=== PATIENT | male | born 1970 | race Caucasian/White ===

== ENCOUNTER → 2020-08-06 13:14 | Outpatient (BNVA) | payer BC, SELFPAY | PROVIDERS: PCP Nurse Practitioner Family; Visit Provider Surgery | DX: Z76.89 Persons encountering health services in other specified circumstances (principal) ==

== ENCOUNTER 2020-08-19 16:49 | Outpatient (REF) | payer BC, SELFPAY | END 2020-08-19 16:50 | disposition home or self-care (01) | LOC: HO.CT 16:49 | PROVIDERS: Visit Provider Surgery | DX: Z13.89 Encounter for screening for other disorder (principal) ==

== ENCOUNTER 2020-08-22 16:52 | Outpatient (REF) | payer BC, SELFPAY ==
--- NOTE | 2020-08-22 16:56 | CT_ITS ---
EXAMINATION: CT ABDOMEN AND PELVIS WITHOUT CONTRAST CLINICAL INFORMATION: Left lower quadrant pain. Left inguinal pain. COMPARISON: None TECHNIQUE: Multidetector volumetric imaging was performed from the superior aspect of the liver through the pubic symphysis. Sagittal and coronal reformatted images were obtained on the technologist's workstation. This CT examination was performed using dose optimization techniques as appropriate, variously including the following: *Automated exposure control *Adjustment of mA and/or kV according to patient size (this includes techniques or standardized protocols for targeted exams where dose is matched to indication/reason for exam; i.e. extremities or head) *Use of iterative reconstruction technique DLP: 546 mGy-cm FINDINGS: LUNG BASES: The visualized lung bases are unremarkable. LIVER, GALLBLADDER, AND BILIARY TREE: The liver is normal in size, shape, and attenuation. No focal hepatic lesion or biliary ductal dilatation is present. The gallbladder is unremarkable with no evidence of radiopaque gallstones, gallbladder wall thickening, or obvious pericholecystic inflammatory changes. PANCREAS: Unremarkable. SPLEEN: Unremarkable. ADRENAL GLANDS: Unremarkable. KIDNEYS AND URETERS: The kidneys are normal in size, shape, and attenuation. No hydronephrosis, hydroureter, or calculi seen. No perinephric stranding. BLADDER: Unremarkable. GASTROINTESTINAL TRACT: The stomach is unremarkable. Normal caliber small bowel. There is no obstruction. No colonic wall thickening or inflammatory changes. Normal appendix. No free air or free fluid. ABDOMINAL WALL: There is a small fat-containing left inguinal hernia, likely indirect. No significant inflammatory changes. LYMPH NODES: Normal. VASCULAR: Unremarkable. PELVIC VISCERA: The prostate and seminal vesicles are unremarkable. OSSEOUS STRUCTURES: No acute or suspicious osseous abnormality. Degenerative changes at L5-S1 with disc space narrowing and vacuum disc phenomenon. Multilevel endplate osteophytes. CT/CT abdomen pelvis wo con IMPRESSION: Small fat-containing left inguinal hernia. No significant associated inflammatory changes.
[2020-08-22] MEDS: Barium Sulfate Oral (Vanilla) 450 ML ORAL.SUSP 900 ML PO (17:07)
== END 2020-08-22 16:53 | disposition home or self-care (01) ==
LOC: HO.CT 16:52
PROVIDERS: PCP Nurse Practitioner Family; Visit Provider Surgery
DX: R10.32 Left lower quadrant pain (principal)
CPT/HCPCS: 74176

== ENCOUNTER → 2020-09-10 14:41 | Outpatient (BNVA) | payer BC, SELFPAY | PROVIDERS: PCP Nurse Practitioner Family; Visit Provider Surgery | DX: Z76.89 Persons encountering health services in other specified circumstances (principal) ==

== ENCOUNTER 2020-10-14 07:28 | Day surgery (SDC) | payer BC, SELFPAY ==
[2020-10-02 10:38] VITALS: BMI 28.1
--- NOTE | 2020-10-07 14:19 | HO.ANESPROP2 ---
Documented by User: Radha Crow 10/09/20 10:08 HPI - Anesthesia Eval Consult details Narrative: 49yo M for Hernia Repair Inguinal ? substance use per history [facility] Past Medical History Medical History Chronic fatigue GERD (gastroesophageal reflux disease) Gout Left inguinal pain SARIAH (obstructive sleep apnea) Right hand paresthesia Family History Family History Mother History of lung cancer Surgical History Surgical History History of carpal tunnel surgery of right wrist (~2016) History of esophagogastroduodenoscopy (EGD) History of knee surgery (~2002) History of repair of rotator cuff (~2005) Hx of lumbar discectomy Social History Social History Alcohol intake: current Alcohol intake frequency: a few times a month Alcohol type: beer Smoking Status: Never smoker Use of substances other than those prescribed or required for medical reasons: Yes Substance Use Frequency: Occasionally Advance Directives Information Provided: No Recently lost weight without trying: No Meds Allergies Allergy/AdvReac Type Severity Reaction Status Date / Time No Known Allergies Allergy Verified 08/06/20 15:03 Home Medications Medication Instructions Recorded Confirmed Type ibuprofen 400 mg PO BID 10/02/20 10/02/20 History Exam Exam Date and Time: October 07, 2020 1419 Height,Weight and Vital Signs: Height 5 ft 10 in Weight 88.904 kg Assessment and Plan Assessment Anesthesia Assessment: Chart Reviewed Documented by User: Sherley Reid 10/14/20 09:33 [facility] Past Medical History Medical History Chronic fatigue GERD (gastroesophageal reflux disease) Gout Left inguinal pain SARIAH (obstructive sleep apnea) Right hand paresthesia Family History Family History Mother History of lung cancer Surgical History Surgical History History of carpal tunnel surgery of right wrist (~2016) History of esophagogastroduodenoscopy (EGD) History of knee surgery (~2002) History of repair of rotator cuff (~2005) Hx of lumbar discectomy Social History Social History Alcohol intake: current Alcohol intake frequency: a few times a month Alcohol type: beer Smoking Status: Never smoker Use of substances other than those prescribed or required for medical reasons: Yes Substance Use Frequency: Occasionally Advance Directives Information Provided: No Recently lost weight without trying: No Meds Allergies Allergy/AdvReac Type Severity Reaction Status Date / Time No Known Allergies Allergy Verified 08/06/20 15:03 Home Medications Medication Instructions Recorded Confirmed Type ibuprofen 400 mg PO BID 10/02/20 10/02/20 History Exam Height,Weight and Vital Signs: Vital Signs Temp Pulse Resp BP Pulse Ox 10/14/20 08:13 97.4 F 75 16 169/92 H 97 Airway Mallampati Class: II TM Dist: >3cm Neck ROM: Full Loose/Missing/Broken Teeth: Yes (Molar) Heart: RRR Lungs: CTAB Assessment and Plan Assessment Anesthesia Assessment: Anesthesia Plan Discussed and Chart Reviewed Final Anesthetic Review NPO: Yes ASA Class: III Final Preanesthetic Review: No Changes in Pt Med Stat, Meds/Allgs Chart Reviewed, Consent Obtained/Reviewed and Anes Risks/Benef Reviewed Patient Risk: Intermediate Procedure Risk: Low Anesthetic Plan Anesthetic Plan: GA Disposition: Standard PACU
[2020-10-14 08:13] VITALS: BP 169/92; PULSE 75; RESP 16; TEMP 36.3; O2SAT 97
[2020-10-14] MEDS: Lactated Ringers 1,000 ML 100 ML IVCONT (08:33)
[2020-10-14] MEDS: ceFAZolin Sodium/Dextrose,Iso 2 GM/50 ML PIGGYBACK IV (08:33)
--- NOTE | 2020-10-14 09:10 | MHC.SHP ---
Pre-Procedural Eval Section A The patient is an INPATIENT: No Changes since office visit: Yes Patient answered all questions; No Cold of Flu in the past 2 weeks, No New Medical Problems and No Changes in Medication The History & Physical has been completed within 30 days and I have reviewed it.: No Section B Chief Complaint: Left inguinal hernia Details of Present Illness: Painful lump left groin Relevant Family History (Specify if Yes): No Relevant Social History: None Present Medications: see Short Stay Collaborative assessment Medical History: Significant History (GERD, GOUT, SARIAH) History of Previous Operations: No relevant previous surgery Allergies: Allergies Allergy/AdvReac Type Severity Reaction Status Date / Time No Known Allergies Allergy Verified 08/06/20 15:03 Review of Systems Sugical H&P ROS: Negative: Constitution, Cardiovascular, Respiratory, Neurological, Psychiatric, Hem-Onc, Allergic/Immunologic, Gastrointestinal, Genitourinary, Musculoskeletal, Integumentary, Endocrine and Eyes/Ears/Nose/Throat Exam Surgical H&P Exam: Normal: HEENT, Normal: Heart, Normal: Lungs, Normal: Extremities, Normal: Abdomen, Normal: Skin and Normal: Neurological Plan Diagnosis/Plan: Unchanged I have reviewed the history and physical and performed a pertinent physical examination on my patient. No changes have occurred unless specified.
--- NOTE | 2020-10-14 10:18 | PM.OP ---
Brief Operative Note Date of Service: 10/14/20 Pre-op diagnosis: Left inguinal hernia Post-op diagnosis: same Procedure: Repair of left inguinal hernia Implants: Medium PHS mesh Surgeon: Jann Thompson MD Anesthesia: GLMA System Archive Analyst: Jyoti Huff Estimated blood loss (mL): 5 Pathology: other (lipoma of cord) Condition: stable Disposition: PACU
--- NOTE | 2020-10-14 10:19 | W.PM.OPN ---
Operative Note Operative Note Date of Service: 10/14/20 Narrative: Preoperative diagnosis: Left inguinal hernia, recurrent Postoperative diagnosis: Same Procedure: Repair of left inguinal hernia with mesh, recurrence Surgeon: Jann Thompson MD [place] Paver: Jyoti Huff PA-C Anesthesia: General LMA Indications for procedure: This is a 49-year-old male patient presenting with complaints of pain in the left groin initially felt to have inguinal lymphadenopathy. Subsequent workup with CT of the abdomen pelvis however revealed a fat containing left inguinal hernia. Operative findings: Patient was found to have a large lipoma of the cord involving the left inguinal canal. Specimen: Lipoma of the cord left inguinal canal Complications: None Estimated blood loss: 5 mL Procedure details: Patient was brought to the OR and placed in a supine position. After administering general anesthesia the patient's abdomen was prepped with ChloraPrep and draped in a sterile fashion. A surgical time-out was called the consent confirmed. Patient received preoperative antibiotics and Venodyne boots were in place. Local anesthesia consisting of 0.75% Sensorcaine with epinephrine was infiltrated over the left inguinal ligament. Incision was then made with a scalpel measuring approximately 6 cm in length. This was carried out through subcutaneous tissue past Candida's fashion up to the external oblique aponeurosis. This was then incised with a scalpel and widened with Metzenbaum scissors. The spermatic cord was then dissected free from the surrounding subcutaneous tissue. The spermatic cord was then retracted using a Gage drain. The floor of the inguinal canal is felt to be intact. A fatty the cord was identified. Fibers of the cremasteric muscle were then and the spermatic cord entered. A large lipoma was identified and dissected free down to the internal ring. This was then ligated and divided. No other inguinal sac was identified. Fibers of the internal oblique and transversalis aponeurosis were then using electrocautery. Preperitoneal space was then entered and widened using an open Ray-Anastasiya. Sponge. A medium PHS mesh was then obtained. The circular underlay was deployed into the preperitoneal space. The overlay was then secured to the pubic tubercle conjoined tendon, and shelving edge of the inguinal ligament using 0 Polysorb suture. A slit was made in the mesh at the internal ring and the mesh wrapped around the spermatic cord. This was then secured to the shelving edge of the inguinal ligament. The ring was tight enough to allow passage of only the tip of the index finger. The remainder of the mesh laterally was placed below the external oblique aponeurosis. The wounds were then irrigated and suctioned dry. Additional local was infiltrated at this time. External oblique aponeurosis was then closed using a running 2 0 Polysorb suture. Candida's fascia and dermis were reapproximated using interrupted 3-0 Polysorb sutures. Skin was then closed using a running subcuticular 4 0 Polysorb suture. Steri-Strips, 2 x 2 gauze and Tegaderm were then applied. Patient tolerated the procedure well. Sponge, instrument, needle counts reported as correct. The patient was transferred to PACU in stable condition.
[2020-10-14 10:23] VITALS: BP 142/78; PULSE 67; RESP 16; TEMP 36.3; O2SAT 98
[2020-10-14 10:28] VITALS: BP 142/91; PULSE 73; RESP 18; O2SAT 98
[2020-10-14 10:33] VITALS: BP 134/85; PULSE 69; RESP 16; O2SAT 96
[2020-10-14 10:38] VITALS: BP 138/87; PULSE 74; RESP 18; O2SAT 97
[2020-10-14 10:53] VITALS: BP 141/92; PULSE 66; RESP 16; TEMP 36.3; O2SAT 96
--- NOTE | 2020-10-14 11:25 | HO.POSTANES ---
Post Anesthesia Evaluation Post Anesthesia Evaluation Vital Signs: Vital Signs Temp Pulse Resp BP Pulse Ox 10/14/20 10:53 97.3 F 66 16 141/92 H 96 10/14/20 10:38 74 18 138/87 97 10/14/20 10:33 69 16 134/85 96 10/14/20 10:28 73 18 142/91 H 98 10/14/20 10:23 97.4 F 67 16 142/78 H 98 10/14/20 08:13 97.4 F 75 16 169/92 H 97 Anesthesia: General LMA Mental Status: Awake Pain Control: Satisfactory Nausea/Vomiting: None Hydration: Adequate Anesthesia-Related Issues: No Anes. Related Issues
== END 2020-10-14 11:40 | disposition home or self-care (01) ==
PROVIDERS: PCP Nurse Practitioner Family; Visit Provider Surgery
PROC: (CPT 49520; principal; 2020-10-14 09:00)
DX: K40.91 Unilateral inguinal hernia, without obstruction or gangrene, recurrent (principal); D17.6 Benign lipomatous neoplasm of spermatic cord; K21.9 Gastro-esophageal reflux disease without esophagitis; G47.33 Obstructive sleep apnea (adult) (pediatric); Z79.899 Other long term (current) drug therapy
CPT/HCPCS: 49520; 88304; C1781; J0690; J1100; J1170; J1885; J2250; J2405; J3010

== ENCOUNTER → 2020-10-23 09:06 | Outpatient (BNVA) | payer BC, SELFPAY | PROVIDERS: PCP Nurse Practitioner Family; Visit Provider Surgery | DX: Z76.89 Persons encountering health services in other specified circumstances (principal) ==

== ENCOUNTER 2020-11-14 12:42 | Outpatient (REF) | payer BC, SELFPAY ==
--- NOTE | ~2020-11-14 | XR_ITS ---
EXAMINATION: XR CHEST CLINICAL INFORMATION: Dyspnea. COMPARISON: 11/29/2018 TECHNIQUE: 2 views of the chest were obtained. FINDINGS: The lungs are well expanded. Patchy opacity of the right midlung noted. No pleural effusion or pneumothorax. The cardiomediastinal silhouette is within normal limits. No acute osseous abnormality. XR/XR chest 2V IMPRESSION: Patchy right midlung opacity which could be infectious or inflammatory in nature.
== END 2020-11-14 12:43 | disposition home or self-care (01) ==
LOC: HO.HMGCX 12:42
PROVIDERS: PCP Nurse Practitioner Family; Visit Provider Physician Assistant
DX: R06.00 Dyspnea, unspecified (principal); Z86.16 Personal history of COVID-19
CPT/HCPCS: 71046

== ENCOUNTER → 2020-11-21 13:21 | Outpatient (BNVA) | payer BC, SELFPAY | PROVIDERS: PCP Nurse Practitioner Family; Visit Provider Surgery ==

== ENCOUNTER → 2021-01-24 10:21 | Outpatient (BNVA) | payer BC, SELFPAY | PROVIDERS: PCP Nurse Practitioner Family; Visit Provider Surgery ==

== ENCOUNTER 2021-01-30 13:42 | Outpatient (REF) | payer BC, SELFPAY ==
--- NOTE | ~2021-01-30 | US_ITS ---
EXAMINATION: US left inguinal soft tissue CLINICAL INFORMATION: Pain status post hernia repair. COMPARISON: None available at the time of this dictation. TECHNIQUE: High-frequency linear transducer ultrasound utilized, area of interest scanned, left inguinal region FINDINGS: No ultrasound evidence of soft tissue mass, cyst or abscess, or abnormal distortion. No ultrasound evidence of hernia recurrence. There is normal-sized lymph node included 1 x 0.5 x 0.8 cm. US/US pelvic limited IMPRESSION: No ultrasound evidence of hernia recurrence.
== END 2021-01-30 13:43 | disposition home or self-care (01) ==
LOC: HO.US 13:42
PROVIDERS: PCP Nurse Practitioner Family; Visit Provider Surgery
DX: Z98.890 Other specified postprocedural states (principal); Z87.19 Personal history of other diseases of the digestive system
CPT/HCPCS: 76857

== ENCOUNTER 2021-06-18 06:34 | Outpatient (REF) | payer BC, SELFPAY ==
[2021-06-18 12:04] LABS: Prostate Specific Antigen Scr 0.43 ng/mL (<0.05-4.0)
[2021-06-18 12:11] LABS: Alanine Aminotransferase 47 U/L (0-40); Albumin Level 4.2 g/dL (3.5-5.0); Alkaline Phosphatase 80 U/L (39-117); Anion Gap 12 (12-20); Aspartate Amino Transferase 26 U/L (5-37); Bilirubin Total 0.8 mg/dL (0.0-1.0); Blood Urea Nitrogen 13 mg/dL (9-16); Calcium 9.4 mg/dL (8.4-10.2); Carbon Dioxide 28 mmol/L (22-29); Chloride 104 mmol/L (96-108); Cholesterol 257 mg/dL; Estimated Glomerular Filt Rate > 60; Glucose Fasting 98 mg/dL (60-99); HDL Cholesterol 59 mg/dL; LDL Cholesterol Calculated 160 mg/dl; Potassium 4.1 mmol/L (3.3-5.1); Sodium 140 mmol/L (135-145); Total Protein 6.5 g/dL (6.5-8.0); Triglycerides 190 mg/dL
== END 2021-06-18 06:35 | disposition home or self-care (01) ==
LOC: HO.HMGCLDS 06:34
PROVIDERS: PCP Nurse Practitioner Family; Visit Provider Nurse Practitioner Family
DX: Z12.5 Encounter for screening for malignant neoplasm of prostate (principal); I10 Essential (primary) hypertension
CPT/HCPCS: 36415; 80053; 80061; 84153; 84443

== ENCOUNTER → 2021-07-03 13:25 | Outpatient (BNVA) | payer BC, SELFPAY | PROVIDERS: PCP Nurse Practitioner Family; Referring Provider Nurse Practitioner Family; Visit Provider Physician Assistant ==

== ENCOUNTER 2021-09-03 09:54 | Day surgery (SDC) | payer BC, SELFPAY ==
[2021-08-26 09:35] VITALS: BMI 27.2
--- NOTE | 2021-09-02 10:29 | P.CONAN_ITS ---
Documented by User: Radha Crow NP 09/02/21 10:31 HPI - Anesthesia Eval Consult details Narrative: 50yo M for Upper Endoscopy and Colonoscopy [facility] Active Problems Active Problems: All Active Problems (Updated 08/26/21 @ 09:33 by Harleen Kenney RN) Immunizations incomplete (Acute) Dyspnea on exertion (Acute) History of COVID-19 (Acute) HTN (hypertension) (Acute) Allergies (Acute) Screening for colon cancer (Acute) Screening PSA (prostate specific antigen) (Acute) Allergies (Acute) Dyslipidemia (Acute) Elevated liver enzymes (Acute) Sleep apnea (Acute) GERD (gastroesophageal reflux disease) (Acute) H/O left inguinal hernia repair (Acute) Past Medical History Medical History Chronic fatigue COVID-19 vaccine series completed GERD (gastroesophageal reflux disease) Gout HTN (hypertension) Left inguinal hernia SARIAH (obstructive sleep apnea) Right hand paresthesia Family History Family History Mother History of lung cancer Surgical History Surgical History (Updated 08/26/21 @ 08:50 by Harleen Kenney RN) H/O left inguinal hernia repair History of carpal tunnel surgery of right wrist (~2016) History of esophagogastroduodenoscopy (EGD) History of knee surgery (~2002) History of repair of rotator cuff (~2005) Hx of lumbar discectomy Social History Social History (Updated 08/26/21 @ 09:35 by Harleen Kenney RN) Household Members: Family Household Members Other:: can Housing: House Are you a primary behavioral health care coordinator to a significant other at home: No Do you presently have visiting nurse or other home services: No Alcohol intake: current Alcohol intake frequency: a few times a month Alcohol type: beer Patient Tobacco Use Status: Never used Tobacco Use of substances other than those prescribed or required for medical reasons: Yes Substance Use Type Other:: occasional edible or smokes-rarely using at this shakira e Substance Use Frequency: Occasionally Have you been hit, kicked, punched, or otherwise hurt by someone within the past year? If so, by whom?: No Are you DNR?: No Advance Directives: No Advance Directives Information Provided: Yes Advance Directives on File: No Recently lost weight without trying: No Eating poorly because of decreased appetite: No Nutrition Risks: No Nutritional Risk Poor oral hygiene: No Meds Allergies Allergy/AdvReac Type Severity Reaction Status Date / Time Seasonal Allergies Allergy Mild runny Verified 09/03/21 10:21 nose, post nasal drip Home Medications Medication Instructions Recorded Confirmed Last Taken Type cetirizine 10 mg tablet 10 mg PO DAILY 08/26/21 08/26/21 Unknown History omeprazole 20 mg capsule,delayed 1 cap PO DAILY 09/03/21 09/03/21 09/03/21 08:00 History release Exam Exam Date and Time: September 02, 2021 1029 Height,Weight and Vital Signs: Height 5 ft 10 in Weight 86.183 kg Pertinent Lab Results Pertinent Lab Results: Laboratory Tests 06/18/21 06:47 Sodium 140 Potassium 4.1 Chloride 104 Carbon Dioxide 28 BUN 13 Creatinine 0.90 Assessment and Plan Assessment Anesthesia Assessment: Chart Reviewed Documented by User: Dash Salcido 09/03/21 10:37 [facility] Past Medical History Medical History Chronic fatigue COVID-19 vaccine series completed GERD (gastroesophageal reflux disease) Gout HTN (hypertension) Left inguinal hernia SARIAH (obstructive sleep apnea) Right hand paresthesia Functional capacity: independent ambulation Family History Family History Mother History of lung cancer Family history of problems with anesthesia: No Surgical History Surgical History (Updated 08/26/21 @ 08:50 by Harleen Kenney, BERNARD) H/O left inguinal hernia repair History of carpal tunnel surgery of right wrist (~2016) History of esophagogastroduodenoscopy (EGD) History of knee surgery (~2002) History of repair of rotator cuff (~2005) Hx of lumbar discectomy History of Problems with Anesthesia: No Social History Social History (Updated 11/16/21 @ 09:35 by Harleen Kenney RN) Household Members: Family Household Members Other:: can Housing: House Are you a primary behavioral health care coordinator to a significant other at home: No Do you presently have visiting nurse or other home services: No Alcohol intake: current Alcohol intake frequency: a few times a month Alcohol t ype: beer Patient Tobacco Use Status: Never used Tobacco Use of substances other than those prescribed or required for medical reasons: Yes Substance Use Type Other:: occasional edible or smokes-rarely using at this time Substance Use Frequency: Occasionally Have you been hit, kicked, punched, or otherwise hurt by someone within the past year? If so, by whom?: No Are you DNR?: No Advance Directives: No Advance Directives Information Provided: Yes Advance Directives on File: No Recently lost weight without trying: No Eating poorly because of decreased appetite: No Nutrition Risks: No Nutritional Risk Poor oral hygiene: No Meds Allergies Allergy/AdvReac Type Severity Reaction Status Date / Time Seasonal Allergies Allergy Mild runny Verified 09/03/21 10:21 nose, post nasal drip Home Medications Medication Instructions Recorded Confirmed Last Taken Type cetirizine 10 mg tablet 10 mg PO DAILY 08/26/21 08/26/21 Unknown History omeprazole 20 mg capsule,delayed 1 cap PO DAILY 09/03/21 09/03/21 09/03/21 08:00 History release Exam Airway Mallampati Class: IV TM Dist: >3cm Neck ROM: Full Loose/Missing/Broken Teeth: Yes (Brooken teeth , left ) Heart: rrr Lungs: bl breath sounds Assessment and Plan Final Anesthetic Review Family History of Problems with Anesthesia: No History of Problems with Anesthesia: No NPO: Yes ASA Class: II Final Preanesthetic Review: Meds/Allgs Chart Reviewed and Anes Risks/Benef Reviewed Patient Risk: Intermediate Procedure Risk: Intermediate Anesthetic Plan Anesthetic Plan: MAC: Disposition: Standard PACU
--- NOTE | 2021-09-03 10:24 | MHC.SHP ---
Pre-Procedural Eval Section A Date of Service: 09/03/21 Section B Chief Complaint: screening,reflux disease Relevant Family History (Specify if Yes): No Relevant Social History: None Present Medications: see Short Stay Collaborative assessment Medical History: Significant History (Chronic fatigue COVID-19 vaccine series completed GERD (gastroesophageal reflux disease) Gout HTN (hypertension) Left inguinal hernia SARIAH (obstructive sleep apnea) Right hand paresthesia) History of Previous Operations: Relevant previous surgery/procedure and date(s) (H/O left inguinal hernia repair History of carpal tunnel surgery of right wrist (~2016) History of esophagogastroduodenoscopy (EGD) History of knee surgery (~2002) History of repair of rotator cuff (~2005) Hx of lumbar discectomy) Allergies: Allergies Allergy/AdvReac Type Severity Reaction Status Date / Time Seasonal Allergies Allergy Mild runny Verified 09/03/21 10:21 nose, post nasal drip Review of Systems Sugical H&P ROS: Negative: Constitution, Cardiovascular, Respiratory, Neurological, Psychiatric, Hem-Onc, Allergic/Immunologic, Gastrointestinal, Genitourinary, Musculoskeletal, Integumentary, Endocrine and Eyes/Ears/Nose/Throat Exam Surgical H&P Exam: Normal: HEENT, Normal: Heart, Normal: Lungs, Normal: Extremities, Normal: Abdomen, Normal: Skin and Normal: Neurological Plan Diagnosis/Plan: Unchanged I have reviewed the history and physical and performed a pertinent physical examination on my patient. No changes have occurred unless specified.
[2021-09-03 10:29] VITALS: BP 140/90; PULSE 73; RESP 20; TEMP 36.7; O2SAT 99
--- NOTE | 2021-09-03 10:30 | PM.OP ---
Brief Operative Note Date of Service: 09/03/21 Pre-op diagnosis: GERD, dysphagia, colons creening Post-op diagnosis: same Procedure: see op note Surgeon: Jimmy Gongora MD Anesthesia: MAC Was an [employer] used for this Procedure?: No Estimated blood loss (mL): 0 Condition: stable Disposition: PACU
--- NOTE | 2021-09-03 10:30 | W.PM.OPN ---
Operative Note Operative Note Date of Service: 09/03/21 Narrative: Operative Information Procedure Description: EGD, Colonoscopy FLEXIBLE TRANSORAL UPPER GASTROINTESTINAL ENDOSCOPY AND COLONOSCOPY PROCEDURE NOTE UPPER ENDOSCOPY Consent: Indications for the procedure and potential complications of bleeding, perforation, reaction to medications and missed diagnosis were discussed with the patient and informed consent was obtained. Instrument: Olympus GIF H 190 J mid size upper endoscope Monitoring: Vital signs and clinical assessment, continuous EKG monitoring, Pulse oximetry, Carbon Dioxide monitoring and blood pressure monitoring were done throughout the procedure. Procedure: The patient was placed in the left lateral decubitis position and pre-procedure medications were administered and a bite block was placed. The endoscope was inserted into the mouth and advanced under direct vision to the third part of duodenum. A careful inspection was made as the upper endoscope was withdrawn including a retroflexed examination of the proximal stomach; Findings and interventions are described below. Findings: Larynx:normal Esophagus: GE junction at 40 cm, diaphragm hiatus at 40 cm, irregular Z line with salmon pink islands and one short tongue, suspicious for barretts--bx taken. Balloon dilation doen at LES to 17 mm and UES to 16 mm. Stomach: Patchy erythema. Biopsies were obtained. Grade 2 flap valve on retroflexed examination of the cardia. Duodenum: Mild duodenitis, bx taken Intervention: Biopsies as noted above COLONOSCOPY Instrument: Olympus variable stiffness pediatric scope 190L Colonoscopy Monitoring: Vital signs and clinical assessment, continuous EKG monitoring, Pulse oximetry, Carbon Dioxide monitoring and blood pressure monitoring were done throughout the procedure. Colon withdrawal time was 16 minutes. Procedure: The patient was placed in the left lateral decubitis position and pre-procedure medications were administered. After a digital rectal examination of the ano-rectum, the video colonoscope was inserted into the rectum and advanced through the colon to the cecum/TI. The colonoscope was slowly withdrawn in a retrograde panoramic fashion and the colon mucosa was carefully examined including a retroflexed view of the rectum. Findings and interventions are described below. Procedure Difficulty: moderate due to looping Findings: Terminal Ileum-normal Cecum: 4-6 mm sessile polyp removed with forceps Ascending Colon: 6-8 mm sessile polyp removed with forceps Transverse Colon -normal Descending Colon:normal Sigmoid Colon: normal Rectum: Retroflexion with small internal hemorrhoids, grade I Anorectum - normal Colon preparation: [place] Bowel Preparation Scale Right colon; 2 Transverse colon: 2 Left colon; 1 (0 = Unprepared colon segment with mucosa not seen due to solid stool that cannot be cleared. 1 = Portion of mucosa of the colon segment seen, but other areas of the colon segment not well seen due to staining, residual stool and/or opaque liquid. 2 = Minor amount of residual staining, small fragments of stool and/or opaque liquid, but mucosa of colon segment seen well. 3 = Entire mucosa of colon segment seen well with no residual staining, small fragments of stool or opaque liquid) Impression and Post Procedure Diagnosis: Endoscopy Findings: gastritis duodenitis possible barretts esophagus Colonoscopy Findings: polyps internal hemorrhoids Plan: Await Pathology results Repeat Colonoscopy in 5 years due to polyps and prep or earlier if clinically indicated High fiber diet leaflet avoid straining at stool, epsom salts and sitz bath, anusol supps or cream check compliance with PPI and for nsaid use if h pylori pos then treat Above findings were reviewed with the patient and relevant handouts were provided if indicated.
[2021-09-03] MEDS: Lactated Ringers 1,000 ML 100 ML IVCONT (10:32)
[2021-09-03 11:27] VITALS: BP 135/84; PULSE 70; RESP 14; TEMP 36.2; O2SAT 99
[2021-09-03 11:51] VITALS: BP 137/76; PULSE 62; RESP 16; TEMP 36.2; O2SAT 100
== END 2021-09-03 12:09 ==
LOC: HO.SSS 09:55
PROVIDERS: PCP Nurse Practitioner Family; Visit Provider Internal Medicine Gastroenterology
PROC: (CPT 45380; principal; 2021-09-03 11:00)
DX: Z12.11 Encounter for screening for malignant neoplasm of colon (principal); D12.2 Benign neoplasm of ascending colon; K63.5 Polyp of colon; K64.0 First degree hemorrhoids; K21.9 Gastro-esophageal reflux disease without esophagitis; K29.50 Unspecified chronic gastritis without bleeding; K22.70 Barrett's esophagus without dysplasia; K20.80 Other esophagitis without bleeding; K29.80 Duodenitis without bleeding; K44.9 Diaphragmatic hernia without obstruction or gangrene; G47.33 Obstructive sleep apnea (adult) (pediatric); R53.83 Other fatigue; I10 Essential (primary) hypertension; Z79.899 Other long term (current) drug therapy; Z79.1 Long term (current) use of non-steroidal anti-inflammatories (NSAID)
CPT/HCPCS: 45380; 43249; 43239; 88305; 88342; C1726

== ENCOUNTER 2021-12-10 10:11 | Outpatient (REF) | payer BC, SELFPAY ==
--- NOTE | ~2021-12-10 | FL_ITS ---
EXAMINATION: FL BARIUM SWALLOW CLINICAL INFORMATION: Dysphagia. COMPARISON: None. TECHNIQUE: Barium swallow examination is performed using fluoroscopic evaluation in addition to multiple fluoroscopic spot views. The patient is imaged both upright and prone and using both thick and thin sulfate along with effervescent granules. Fluoroscopy time: 1.5 minutes DAP: 10.419 Gy-cm2 Images: 51 FINDINGS: Following oral administration of thick barium in upright view, there is mild circumferentially irregularity in the cervical esophagus on several images. This could be secondary to mucosal hypertrophy or mural thickening. The rest of the esophagus is of normal caliber with no obstruction, narrowing or mucosal abnormality. On oral administration of barium-coated with turkey, there is normal propagation of solid bolus from the oral cavity through the pharynx and esophagus and into the stomach. On placing patient prone lying, there is good distention of the esophagus without obstruction, intrinsic lesion or extrinsic compression. No gastroesophageal reflux or hiatal hernia seen. FL/FL barium swallow IMPRESSION: Mild cerebral irregularity in the cervical esophagus likely secondary to mucosal hypertrophy or mural thickening. The thoracic esophagus is normal. No gastroesophageal reflux or hiatal hernia seen.
== END 2021-12-10 10:12 | disposition home or self-care (01) ==
LOC: HO.XRAY 10:11
PROVIDERS: PCP Nurse Practitioner Family; Visit Provider Nurse Practitioner Family
DX: R13.10 Dysphagia, unspecified (principal); T17.320A Food in larynx causing asphyxiation, initial encounter
CPT/HCPCS: 74220

== ENCOUNTER 2022-07-01 06:55 | Outpatient (REF) | payer BC, SELFPAY ==
[2022-07-01 07:06] LABS: MANUAL DIFF FLAG NO
[2022-07-01 07:41] LABS: Basophils Absolute Auto 0.1 X10*3/uL (0.0-0.2); Basophils Percent Auto 0.8 % (0-2); Eosinophils Absolute Auto 0.3 X10*3/uL (0.0-0.4); Eosinophils Percent Auto 4.8 % (0-4); Hematocrit 43.9 % (42.0-52.0); Hemoglobin 15.3 g/dl (14.0-18.0); Imm Gran Abs Auto 0.03 X10*3/uL (0.00-0.03); Imm Gran Pct Auto 0.5 % (0.0-0.4); Lymphocytes Absolute Auto 2.1 X10*3/uL (1.2-4.9); Lymphocytes Percent Auto 34.3 % (20-40); Mean Corpuscular HGB Conc 34.9 g/dl (31.0-36.0); Mean Corpuscular Hemoglobin 32.1 pg (27.0-33.0); Mean Platelet Volume 10.5 fL (9.4-12.4); Monocytes Absolute Auto 0.8 X10*3/uL (0.1-1.2); Monocytes Percent Auto 12.9 % (2-11); Neutrophils Absolute Auto 2.8 x10*3/uL (2.0-8.3); Neutrophils Percent Auto 46.7 % (45-73); Platelet Count 307 X10*3/uL (160-400); Red Blood Count 4.77 X10*6/uL (4.60-5.80); Red Cell Distribution Width 12.3 % (11.0-16.0)
== END 2022-07-01 06:56 | disposition home or self-care (01) ==
LOC: HO.LAB 06:55
PROVIDERS: Absent Provider Internal Medicine Gastroenterology; PCP Nurse Practitioner Family; Visit Provider Nurse Practitioner Family
DX: R13.10 Dysphagia, unspecified (principal); T17.320A Food in larynx causing asphyxiation, initial encounter; T78.40XA Allergy, unspecified, initial encounter
CPT/HCPCS: 36415; 85025; 86003

== ENCOUNTER 2022-09-15 10:49 | Day surgery (SDC) | payer BC, SELFPAY ==
[2022-09-10 10:33] VITALS: BMI 27.9
--- NOTE | 2022-09-14 13:17 | P.CONAN_ITS ---
Documented by User: Radha Crow NP 09/14/22 13:17 HPI - Anesthesia Eval Consult details Narrative: 51yo M for Upper Endoscopy [place] PMFSH Active Problems Active Problems: All Active Problems (Updated 07/15/22 @ 14:36 by [facility]) Physical exam (Acute) Choking due to food in larynx (Acute) Dysphagia (Acute) Immunizations incomplete (Acute) Dyspnea on exertion (Acute) History of COVID-19 (Acute) HTN (hypertension) (Acute) Allergies (Acute) Screening for colon cancer (Acute) Screening PSA (prostate specific antigen) (Acute) Allergies (Acute) Dyslipidemia (Acute) Elevated liver enzymes (Acute) Sleep apnea (Acute) GERD (gastroesophageal reflux disease) (Acute) H/O left inguinal hernia repair (Acute) Past Medical History Medical History Chronic fatigue COVID-19 vaccine series completed GERD (gastroesophageal reflux disease) Gout HTN (hypertension) Left inguinal hernia SARIAH (obstructive sleep apnea) Right hand paresthesia Family History Family History Mother History of lung cancer Family history of problems with anesthesia: No Surgical History Surgical History H/O left inguinal hernia repair History of carpal tunnel surgery of right wrist (~2016) History of esophagogastroduodenoscopy (EGD) History of knee surgery (~2002) History of repair of rotator cuff (~2005) Hx of lumbar discectomy History of Problems with Anesthesia: No Social History Social History Household Members: Family Household Members Other:: can Housing: House Are you a primary intensive care medicine specialist to a significant other at home: No Do you presently have visiting nurse or other home services: No Alcohol intake: current Alcohol intake frequency: 0-2 drinks per day Alcohol type: beer Patient Tobacco Use Status: Never used Tobacco e-Cigarette/Vaping Use: Never Used Second Hand Smoke Exposure: No Current occupational status: employed Current occupation: [employer] Current occupational exposures/hazards: No Cognitive needs: No Hearing needs: No Vision needs: No Meds Allergies Allergy/AdvReac Type Severity Reaction Status Date / Time Seasonal Allergies Allergy Mild runny Verified 07/15/22 14:35 nose, post nasal drip Home Medications Medication Instructions Recorded Confirmed Last Taken Type fluticasone propionate 50 1 spray intranasal BID 10/13/21 07/15/22 Unknown History mcg/actuation nasal spray,suspension (Flonase Allergy Relief) levocetirizine 5 mg tablet (Xyzal) 5 mg PO DAILY 01/12/22 07/15/22 Unknown History Exam Exam Date and Time: September 14, 2022 131 Height,Weight and Vital Signs: Height 5 ft 10 in Weight 88.451 kg Assessment and Plan Assessment Anesthesia Assessment: Chart Reviewed Final Anesthetic Review Family History of Problems with Anesthesia: No History of Problems with Anesthesia: No Documented by User: Dash Salcido MD 09/15/22 19:50 [facility] Past Medical History Medical History Chronic fatigue COVID-19 vaccine series completed GERD (gastroesophageal reflux disease) Gout HTN (hypertension) Left inguinal hernia SARIAH (obstructive sleep apnea) Right hand paresthesia Family History Family History Mother History of lung cancer Surgical History Surgical History H/O left inguinal hernia repair History of carpal tunnel surgery of right wrist (~2016) History of esophagogastroduodenoscopy (EGD) History of knee surgery (~2002) History of repair of rotator cuff (~2005) Hx of lumbar discectomy Social History Social History Household Members: Family Household Members Other:: can Housing: House Are you a primary intensive care medicine specialist to a significant other at home: No Do you presently have visiting nurse or other home services: No Alcohol intake: current Alcohol intake frequency: 0-2 drinks per day Alcohol type: beer Patient Tobacco Use Status: Never used Tobacco e-Cigarette/Vaping Use: Never Used Second Hand Smoke Exposure: No Current occupational status: employed Current occupation: [employer] Current occupational exposures/hazards: No Cognitive needs: No Hearing needs: No Vision needs: No Meds Allergies Allergy/AdvReac Type Severity Reaction Status Date / Time Seasonal Allergies Allergy Mild runny Verified 07/15/22 14:35 nose, post nasal drip Home Medications Medication Instructions Recorded Confirmed Last Taken Type fluticasone propionate 50 1 spray intranasal BID 10/13/21 07/15/22 Unknown History mcg/actuation nasal spray,suspension (Flonase Allergy Relief) levocetirizine 5 mg tablet (Xyzal) 5 mg PO DAILY 01/12/22 07/15/22 Unknown History Exam Airway Mallampati Class: IV TM Dist: >3cm Neck ROM: Full Loose/Missing/Broken Teeth: Yes (Upper front teeth chipped) Assessment and Plan Assessment Anesthesia Assessment: Anesthesia Plan Discussed Final Anesthetic Review NPO: Yes ASA Class: II Final Preanesthetic Review: Meds/Allgs Chart Reviewed, Consent Obtained/Reviewed and Anes Risks/Benef Reviewed Patient Risk: Intermediate Procedure Risk: Intermediate Anesthetic Plan Anesthetic Plan: MAC: Disposition: Standard PACU
--- NOTE | 2022-09-15 10:59 | MHC.SHP ---
Pre-Procedural Eval Section A Date of Service: 09/15/22 Section B Chief Complaint: GERD Details of Present Illness: dysphagia Relevant Family History (Specify if Yes): No Relevant Social History: None Present Medications: see Short Stay Collaborative assessment Medical History: Significant History (Chronic fatigue COVID-19 vaccine series completed GERD (gastroesophageal reflux disease) Gout HTN (hypertension) Left inguinal hernia SARIAH (obstructive sleep apnea) Right hand paresthesia) History of Previous Operations: Relevant previous surgery/procedure and date(s) ( H/O left inguinal hernia repair History of carpal tunnel surgery of right wrist (~2016) History of esophagogastroduodenoscopy (EGD) History of knee surgery (~2002) History of repair of rotator cuff (~2005) Hx of lumbar discectomy) Allergies: Allergies Allergy/AdvReac Type Severity Reaction Status Date / Time Seasonal Allergies Allergy Mild runny Verified 07/15/22 14:35 nose, post nasal drip Review of Systems Sugical H&P ROS: Negative: Constitution, Cardiovascular, Respiratory, Neurological, Psychiatric, Hem-Onc, Allergic/Immunologic, Gastrointestinal, Genitourinary, Musculoskeletal, Integumentary, Endocrine and Eyes/Ears/Nose/Throat Exam Surgical H&P Exam: Normal: HEENT, Normal: Heart, Normal: Lungs, Normal: Extremities, Normal: Abdomen, Normal: Skin and Normal: Neurological Plan Diagnosis/Plan: Unchanged I have reviewed the history and physical and performed a pertinent physical examination on my patient. No changes have occurred unless specified. ESCUDERO and balloon dilation
[2022-09-15 11:20] VITALS: BP 133/80; PULSE 63; RESP 16; TEMP 36.5; O2SAT 96
[2022-09-15] MEDS: Lactated Ringers 1,000 ML 100 ML IVCONT (11:23)
--- NOTE | 2022-09-15 11:34 | W.PM.OPN ---
Operative Note Operative Note Date of Service: 09/15/22 Narrative: Procedure Description: EGD Indication: GERd, dysphagia Anesthesia: MAC FLEXIBLE TRANSORAL UPPER GASTROINTESTINAL ENDOSCOPY UPPER ENDOSCOPY Consent: Indications for the procedure and potential complications of bleeding, perforation, reaction to medications and missed diagnosis were discussed with the patient and informed consent was obtained. Instrument: Olympus GIF H 190 J mid size upper endoscope Monitoring: Vital signs and clinical assessment, continuous EKG monitoring, Pulse oximetry, Carbon Dioxide monitoring and blood pressure monitoring were done throughout the procedure. Procedure: The patient was placed in the left lateral decubitis position and pre-procedure medications were administered and a bite block was placed. The endoscope was inserted into the mouth and advanced under direct vision to the third part of duodenum. A careful inspection was made as the upper endoscope was withdrawn including a retroflexed examination of the proximal stomach; Findings and interventions are described below. Findings: Larynx:normal Esophagus: GE junction at 42 cm, diaphragm hiatus at 42 cm, irregular z line with lax LES, Ballon dilation doen to 19 mm LEs and 18 mm UES with slight heme seen. ESCUDERO placement at 36 cm. Stomach: normal mucosa. Grade 3 flap valve on retroflexed examination of the cardia. Duodenum: Normal bulb and descending duodenum, Intervention: Balloon dilation, ESCUDERO placement Impression/Findings: LAX LES PLAN: await ESCUDERO results GERD precautions
[2022-09-15 12:44] VITALS: BP 143/77; PULSE 78; RESP 16; TEMP 36.9; O2SAT 96
[2022-09-15 12:59] VITALS: BP 136/78; PULSE 60; RESP 18; TEMP 36.8; O2SAT 96
== END 2022-09-15 14:15 | disposition home or self-care (01) ==
PROVIDERS: PCP Nurse Practitioner Family; Visit Provider Internal Medicine Gastroenterology
PROC: 0DJ08ZZ Inspection of Upper Intestinal Tract, Via Natural or Artificial Opening Endoscopic (ICD-10-PCS; CPT 43235; principal; 2022-09-15 12:00)
DX: R13.10 Dysphagia, unspecified (principal); K21.9 Gastro-esophageal reflux disease without esophagitis; I10 Essential (primary) hypertension; G47.33 Obstructive sleep apnea (adult) (pediatric); Z79.899 Other long term (current) drug therapy
CPT/HCPCS: 43249; C1726; J2250

== ENCOUNTER 2022-11-02 16:43 | Emergency (ER) | payer BC, SELFPAY ==
--- NOTE | ~2022-11-02 | XR_ITS ---
EXAMINATION: XR CHEST CLINICAL INFORMATION: Chest pain COMPARISON: 11/14/2020 TECHNIQUE: Frontal view of the chest was obtained. FINDINGS: No significant abnormality is noted involving the heart, lungs, mediastinum, bony thorax or soft tissues. Previously seen pulmonary infiltrates have cleared and the exam is now normal. XR/XR chest 1V IMPRESSION: Unremarkable examination.
--- NOTE | 2022-11-02 17:12 | ED_ITS ---
HPI - General Adult General Chief complaint: Chest Pain Stated complaint: high blood presure Time Seen by Provider: 11/02/22 19:08 Source: patient Mode of arrival: ambulatory Limitations: no limitations History of Present Illness HPI narrative: 51 yo male with history of HTN on lisinopril, HLD, SARIAH noncompliant with CPAP, who presents to the ER for evaluation of elevated blood pressure at home today. He ran out of his lisinopril 2 weeks ago and just started taking it again last week. He reports his BP at home 160/150 at home in the left arm and 160/110 in the other arm. He took his lisinopril at 3:30pm after he got out of work. He had a headache today. He reports intermittent left sided chest wall ache the last week. Worse with palpation and improvement with laying on his left side. No associated radiation of the pain, no SOB, nausea or diaphoresis. MD complaint: HTN Radiation: non-radiation Severity: mild Severity scale (1-10): 3 Quality: aching Pain Consistency: intermittent Relieving factors: none Exacerbating factors: none Associated symptoms: denies other symptoms Treatments prior to arrival: none Related Data Home Medications Medication Instructions Recorded Confirmed fluticasone propionate 50 1 spray intranasal BID 10/13/21 07/15/22 mcg/actuation nasal spray,suspension (Flonase Allergy Relief) levocetirizine 5 mg tablet (Xyzal) 5 mg PO DAILY 01/12/22 07/15/22 Previous Rx's Medication Instructions Recorded esomeprazole magnesium 40 mg 40 mg PO DAILY 90 days #90 caps 12/23/21 capsule,delayed release lisinopril 20 mg tablet 20 mg PO DAILY 90 days #90 tabs 02/04/22 sodium chloride 0.65 % nasal spray 2 spray intranasal QID PRN dry 09/28/22 aerosol ([place] Nasal) nasal passages #104 mL Allergies Allergy/AdvReac Type Severity Reaction Status Date / Time Seasonal Allergies Allergy Mild runny Verified 11/02/22 17:13 nose, post nasal drip Review of Systems Review of Systems: Yes all other systems are reviewed and are negative PMFSH Past Medical History Medical History Chronic fatigue COVID-19 vaccine series completed GERD (gastroesophageal reflux disease) Gout HTN (hypertension) Left inguinal hernia SARIAH (obstructive sleep apnea) Right hand paresthesia Surgical History H/O left inguinal hernia repair History of carpal tunnel surgery of right wrist (~2016) History of esophagogastroduodenoscopy (EGD) History of knee surgery (~2002) History of repair of rotator cuff (~2005) Hx of lumbar discectomy Family History Family History Mother History of lung cancer Social History Social History Household Members: Family Household Members Other:: can Housing: House Are you a primary healthcare administrative assistant to a significant other at home: No Do you presently have visiting nurse or other home services: No Alcohol intake: current Alcohol intake frequency: 0-2 drinks per day Alcohol type: beer Patient Tobacco Use Status: Never used Tobacco e-Cigarette/Vaping Use: Never Used Second Hand Smoke Exposure: No Advance Directives: No Advance Directives Information Provided: No Current occupational status: employed Current occupation: [employer] Current occupational exposures/hazards: No Cognitive needs: No Hearing needs: No Vision needs: No Physical Exam ED Vital Signs: Vital Signs - 24 hr 11/02/22 17:13 11/02/22 19:08 Temperature 98.5 F 98.2 F Pulse Rate 75 65 Respiratory Rate 16 15 Blood Pressure 153/69 H 129/82 Pulse Oximetry 98 97 Oxygen Delivery Method Room Air Room Air BMI result Body Mass Index 24.3 Appearance: Alert. Oriented X3. No acute distress. Eyes: Pupils equal, round and reactive to light. ENT: Pharynx normal. Neck: Normal inspection. Neck supple. CVS: Normal heart rate and rhythm. Pulses normal. Mild left sided anterior ch est wall tenderness. Respiratory: No respiratory distress. Breath sounds normal. Abdomen: Soft and nontender. +BS x4 Skin: Skin warm and dry. Normal skin color. Normal skin turgor. No rashes. Extremities: No lower extremity edema. No calf tenderness Neuro: Oriented X 3. No motor deficit. No sensory deficit. Course Course Course Narrative: 51 yo male with history hx HTN on lisinopril 20mg, SARIAH noncompliant with CPAP who presents to the ER for evaluation of elevated BP along with 1 week of aching left sided chest pain, worse when he lays on his left side. Took lisinopril today at 3:30 pm after work. No headaches. Intermittently has blurry vision at home. BP at home he reports was 160/150 on one arm and 160/110 on the other. BP 150/60s in triage. will check labs, CXR and EKG. Reevaluation(s) Reevaluation #1: repeat BP 129/82. troponin negative. cxr clear. stable for d/c home. Medical Decision Making Differential Diagnosis Differential Diagnoses: The differential diagnosis associated with the presentation includes ACS, HTN urgency, HTN emergency, uncontrolled HTN, anxiety, costochondritis, less likely PE, myocarditis Lab Data MDM Lab Attestation statement: I reviewed the patient's lab results. normal CBC, no significant metabolic derangements 11/02/22 17:47 11/02/22 17:47 Labs: Lab Results 11/02/22 11/02/22 11/02/22 Range/Units 17:47 17:47 17:47 WBC 9.5 (4.8-10.8) X10*3/uL RBC 4.82 (4.60-5.80) X10*6/uL Hgb 15.1 (14.0-18.0) g/dl Hct 43.5 (42.0-52.0) % MCV 90.2 (80.0-98.0) fL MCH 31.3 (27.0-33.0) pg MCHC 34.7 (31.0-36.0) g/dl RDW 12.3 (11.0-16.0) % Plt Count 338 (160-400) X10*3/uL MPV 10.4 (9.4-12.4) fL Immature Gran % (Auto) 0.3 (0.0-0.4) % Neut % (Auto) 65.1 (45-73) % Lymph % (Auto) 20.5 (20-40) % [place] % (Auto) 11.4 H (2-11) % Eos % (Auto) 2.0 (0-4) % Baso % (Auto) 0.7 (0-2) % Lymph # (Auto) 2.0 (1.2-4.9) X10*3/uL [place] # (Auto) 1.1 (0.1-1.2) X10*3/uL Eos # (Auto) 0.2 (0.0-0.4) X10*3/uL Baso # (Auto) 0.1 (0.0-0.2) X10*3/uL Abs Immat Gran (auto) 0.03 (0.00-0.03) X10*3/uL Absolute Neuts (auto) 6.2 (2.0-8.3) x10*3/uL Absolute Nucleated RBC 0.000 (0.0-0.012) X10*3/uL Nucleated RBC % (auto) 0.0 (0.0-0.2) /100WBC Sodium 142 (135-145) mmol/L Potassium 4.9 (3.3-5.1) mmol/L Chloride 103 (96-108) mmol/L Carbon Dioxide 30 H (22-29) mmol/L Anion Gap 14 (12-20) BUN 16 (9-16) mg/dL Creatinine 0.95 (0.5-1.4) mg/dL Estim Creat Clear Calc 88.0 Estimated GFR > 60 Random Glucose 72 (60-115) mg/dL Calcium 10.1 D (8.4-10.2) mg/dL Magnesium 2.1 (1.6-2.6) mg/dL Total Bilirubin 0.3 (0.0-1.0) mg/dL Direct Bilirubin < 0.2 (0.0-0.5) mg/dL AST 26 (5-37) U/L ALT 45 H (0-40) U/L Alkaline Phosphatase 72 (39-117) U/L Troponin I High Sens < 3.5 (<3.5-35.0) ng/L Total Protein 6.9 (6.5-8.0) g/dL Albumin 4.6 (3.5-5.0) g/dL Independent Interpretation I performed an independent interpretation of an: EKG Interpretation: EKG with normal sinus rhythm, HR 70 bpm, normal MT interval, normal QTc, no ST segment elevations or depressions CXR clear, no PNA or effusion Radiology Impression Discussion of test interpretation with radiology: I have reviewed the radiologist's reading. Radiologist Impression: XR/XR chest 1V IMPRESSION: Unremarkable examination. Independent Historian Clinical information obtained from an independent historian. History obtained from or confirmed by: Spouse External Record Review External record reviewed: Outpatient record, Prior outpatient labs and Prior outpatient radiology Chronic Conditions Patient?s care impacted by: Hypertension Critical Care Time Critical Care Time Critical Care Time: No Discharge Plan Discharge Clinical Impression: Costalchondritis, Hypertension Patient Disposition: Home, Self-Care Instructions: Costochondritis (ED), Hypertension (ED) Additional Instructions: Your lab workup today was unremarkable. Your labs and EKG did not show any evidence of strain on your heart. Continue to taking lisinopril as prescribed. Recommend decreasing her salt intake and increasing your aerobic activity. Follow-up with primary care doctor. If you develop new or worsening symptoms call 911 or come back to the ER for further evaluation. Prescriptions: No Action esomeprazole magnesium 40 mg capsule,delayed release(DR/EC) 40 mg PO DAILY 90 Days Qty: 90 2RF lisinopril 20 mg tablet 20 mg PO DAILY 90 Days Qty: 90 3RF fluticasone propionate [Flonase Allergy Relief] 50 mcg/actuation spray ,suspension 1 spray intranasal BID Rx Instructions: administer into each nostril levocetirizine [Xyzal] 5 mg tablet 5 mg PO DAILY [place] Nasal 0.65 % aerosol,spray 2 spray intranasal QID PRN (Reason: dry nasal passages) Qty: 104 2RF Referrals: Jann Gross, SHIPPING MANAGER-[facility] [Primary Care Provider] - (HTN) Interventions: ED Discharge Assessment Last Done: 11/02/22 19:28 Discharge Date/Time: 11/02/22 19:29
[2022-11-02 17:13] VITALS: BP 153/69; PULSE 75; RESP 16; TEMP 36.9; O2SAT 98; BMI 24.3
--- NOTE | 2022-11-02 17:15 | ECG_ITS ---
Test Reason : high blood pressues Blood Pressure : / mmHG Vent. Rate : 070 BPM Atrial Rate : 070 BPM P-R Int : 140 ms QRS Dur : 082 ms QT Int : 372 ms P-R-T Axes : 037 020 -02 degrees QTc Int : 401 ms Normal sinus rhythm Nonspecific T wave abnormality Abnormal ECG No previous ECGs available Referred By: Cary Vivar Electronically Signed By:SANTIAGO VELIZ
[2022-11-02 18:07] LABS: MANUAL DIFF FLAG NO
[2022-11-02 18:11] LABS: Basophils Absolute Auto 0.1 X10*3/uL (0.0-0.2); Basophils Percent Auto 0.7 % (0-2); Eosinophils Absolute Auto 0.2 X10*3/uL (0.0-0.4); Hematocrit 43.5 % (42.0-52.0); Hemoglobin 15.1 g/dl (14.0-18.0); Imm Gran Abs Auto 0.03 X10*3/uL (0.00-0.03); Imm Gran Pct Auto 0.3 % (0.0-0.4); Lymphocytes Percent Auto 20.5 % (20-40); Mean Corpuscular HGB Conc 34.7 g/dl (31.0-36.0); Mean Corpuscular Hemoglobin 31.3 pg (27.0-33.0); Mean Corpuscular Volume 90.2 fL (80.0-98.0); Mean Platelet Volume 10.4 fL (9.4-12.4); Monocytes Absolute Auto 1.1 X10*3/uL (0.1-1.2); Monocytes Percent Auto 11.4 % (2-11); Neutrophils Absolute Auto 6.2 x10*3/uL (2.0-8.3); Neutrophils Percent Auto 65.1 % (45-73); Platelet Count 338 X10*3/uL (160-400); Red Blood Count 4.82 X10*6/uL (4.60-5.80); Red Cell Distribution Width 12.3 % (11.0-16.0); White Blood Count 9.5 X10*3/uL (4.8-10.8)
[2022-11-02 18:30] LABS: Alanine Aminotransferase 45 U/L (0-40); Albumin Level 4.6 g/dL (3.5-5.0); Alkaline Phosphatase 72 U/L (39-117); Anion Gap 14 (12-20); Aspartate Amino Transferase 26 U/L (5-37); Bilirubin Direct < 0.2 mg/dL (0.0-0.5); Bilirubin Total 0.3 mg/dL (0.0-1.0); Blood Urea Nitrogen 16 mg/dL (9-16); Calcium 10.1 mg/dL (8.4-10.2); Carbon Dioxide 30 mmol/L (22-29); Chloride 103 mmol/L (96-108); Estimated Glomerular Filt Rate > 60; Glucose Random 72 mg/dL (60-115); Magnesium 2.1 mg/dL (1.6-2.6); Potassium 4.9 mmol/L (3.3-5.1); Sodium 142 mmol/L (135-145); Total Protein 6.9 g/dL (6.5-8.0)
[2022-11-02 18:39] LABS: Troponin-I High Sensitivity < 3.5 ng/L (<3.5-35.0)
[2022-11-02 19:08] VITALS: BP 129/82; PULSE 65; RESP 15; TEMP 36.8; O2SAT 97
== END 2022-11-02 19:29 | disposition home or self-care (01) ==
PROVIDERS: Physician Assistant; Emergency Provider Emergency Medicine; PCP Nurse Practitioner Family
DX: M94.0 Chondrocostal junction syndrome [Tietze] (principal); I10 Essential (primary) hypertension; E78.5 Hyperlipidemia, unspecified; Z79.899 Other long term (current) drug therapy
CPT/HCPCS: 36415; 71045; 80048; 80076; 83735; 84484; 85025; 93005; 99283; 99284

== ENCOUNTER → 2023-03-01 13:28 | Outpatient (BNVA) | payer BC, SELFPAY | PROVIDERS: PCP Nurse Practitioner Family; Visit Provider Internal Medicine Gastroenterology ==

== ENCOUNTER 2023-07-21 07:26 | Outpatient (AMB) | payer BC, SELFPAY ==
--- NOTE | 2023-07-21 07:33 | MHC.PC.OV ---
Vital Signs 07/21/23 07:35 Height 5 ft 10 in Weight 203 lb BMI 29.1 BP 120/82 Blood Pressure Location Rt brachial Position Sitting Pulse 63 Pulse Source Pulse Oximeter Pulse Oximetry (%) 98 Oxygen Delivery Method Room Air Intake Visit Reasons: PE Allergies Seasonal Allergies Allergy (Mild, Verified 07/21/23 07:37) runny nose, post nasal drip Medication List - Last Reconciled 07/21/23 by SEJAL Guajardo amlodipine 2.5 mg PO DAILY esomeprazole magnesium 40 mg PO DAILY 90 days fluticasone propionate 50 mcg/actuation (Flonase Allergy Relief) 1 spray intranasal BID levocetirizine (Xyzal) 5 mg PO DAILY lisinopril 20 mg PO DAILY sodium chloride 0.65% ([place] Nasal) 2 sprays intranasal QID PRN Tobacco use date assessed: 07/21/23 Dental Screening Dental Screen Date: 07/21/23 Did you have a dental visit in the last 12 months?: No Did you have a dental problem in the last 6 months where you did not have access to dental care?: No Was dental information given to patient?: Patient has dentist HPI PE HPI Details Pt is here for a PE. Will order labs. Colon screen is up to date. Due for PSA, will order. Denies dribbling with urination, weak stream, and frequent nocturia. [facility] Medical History COVID-19 vaccine series completed HTN (hypertension) Left inguinal hernia Right hand paresthesia Chronic fatigue GERD (gastroesophageal reflux disease) Gout SARIAH (obstructive sleep apnea) Surgical History H/O left inguinal hernia repair History of esophagogastroduodenoscopy (EGD) Hx of lumbar discectomy History of carpal tunnel surgery of right wrist (~2016) History of knee surgery (~2002) History of repair of rotator cuff (~2005) Family History Mother History of lung cancer Sister Substance use disorder Brother Substance use disorder Social History Household Members: Family Household Members Other:: can Housing: House Are you a primary child care centre director to a significant other at home: No Do you presently have visiting nurse or other home services: No Alcohol intake: current Alcohol intake frequency: 0-2 drinks per day Alcohol type: beer Patient Tobacco Use Status: Never used Tobacco e-Cigarette/Vaping Use: Never Used Second Hand Smoke Exposure: No Current occupational status: employed Current occupation: [employer] Current occupational exposures/hazards: No Cognitive needs: No Hearing needs: No Vision needs: No Questionnaire Thrive Questionnaire Date Thrive assessed: 10/13/21 LIS-7 AMB Questionnaire LIS-7 Date LIS - 7 assessed: 10/13/21 Source: Developed by Drs. Manjeet Sandra, Francy Singh, Juwan Sanches and colleagues, with an educational divya from [employer]. Review of Systems Const Denies chills and Denies fever(s) Eyes Denies blurry vision ENT Denies vertigo, Denies dizziness and Denies sore throat Card Denies chest pain at rest, Denies chest pain with activity, Denies diaphoresis, Denies dyspnea and Denies dyspnea on exertion Resp Denies cough, Denies dyspnea, Denies dyspnea on exertion and Denies wheezing GI Denies abdominal pain, Denies melena, Denies hematochezia, Denies constipation, Denies diarrhea and Denies loose stools Denies hematuria Musc Denies numbness and Denies tingling Skin/Breast Denies lesions Neuro Denies vertigo, Denies dizziness, Denies numbness and Denies tingling Psych Denies anxiety, Denies depression, Denies homicidal ideation, Denies suicidal ideation and Denies other (substance abuse) Aller/Immun Denies wheezing Physical exam (Primary Care) Vital Signs: Last Vital Signs Pulse 63 07/21/23 07:35 BP 120/82 07/21/23 07:35 Pulse Ox 98 07/21/23 07:35 Oxygen Delivery Method Room Air 07/21/23 07:35 BMI result Body Mass Index 29.1 Tobacco/Smoking Status: Tobacco use Status Tobacco use date assessed 07/21/23 07/21/23 07:39 Patient Tobacco Use Status Never used Tobacco 07/21/23 07:33 e-Cigarette/Vaping Use Never Used 07/21/23 07:33 Thrive Assessment: Date of Thrive Assessment Date Thrive assessed 10/13/21 07/21/23 07:33 Const General: cooperative Nutritional Appearance: well nourished Orientation/consciousness: patient oriented x3 HENMT Head: Yes normal to inspection, Yes normocephalic and Yes atraumatic Ears: TM's normal bilaterally Eyes General: appearance normal, both eyes and all related structures Alignment and Position: alignment normal and position normal Neck Neck: Yes normal visual inspection and Yes no lymphadenopathy Thyroid: Thyroid normal Resp Effort & Inspection: normal respiratory effort Auscultation: clear to auscultation bilaterally Cardio Rate: regular rate Rhythm: regular rhythm Heart sounds: S1 normal heart sound present, S2 normal heart sound present and no murmurs GI Palpation (GI): Soft to palpation and nontender Auscultation: normal bowel sounds Male General Exam: Yes normal external exam Penis: normal penis Scrotum: scrotum normal, testes descended bilaterally and no inguinal hernias Testes: no testicular mass Skin Rashes: no rashes Neuro General: patient oriented x3, moves all extremities, no focal motor deficits and deep tendon reflexes 2+ bilaterally Romberg Test: Negative Psych Appearance: grossly normal Mental Status: mental status grossly normal Speech and movement: Normal speech and movement present Affect: normal affect Attitude: cooperative Thought process: Normal thought process present Thought content: Normal thought content present Insight: Good insight present (Psych) Judgement: Good judgement present (Psych) Assessment and Plan Assessment & Plan (1) Physical exam: Code(s): Z00.00 - Encounter for general adult medical examination without abnormal findings Plan: Labs ordered (2) Screening PSA (prostate specific antigen): Code(s): Z12.5 - Encounter for screening for malignant neoplasm of prostate Plan: PSA ordered Plan The patient agreed to the use of a medical services assistant for this encounter. Scribed for SEJAL Woodson by Clarissa Xiao medical services assistant, on 07/21/2023 at 07:45 EST Orders: Orders Complete Blood Count Auto Diff Today Z00.00 - Encounter for general adult medical examination without abnormal findings TSH reflex Free T4 Today Z00.00 - Encounter for general adult medical examination without abnormal findings Comprehensive [place]. Panel Fast Today Z00.00 - Encounter for general adult medical examination without abnormal findings UA CC w/rflx Micro + Cult Today Z00.00 - Encounter for general adult medical examination without abnormal findings Lipid Panel Today Z00.00 - Encounter for general adult medical examination without abnormal findings Prostate Specific Antigen Scr Today Z12.5 - Encounter for screening for malignant neoplasm of prostate Coding Level of Care Code Est Pt Prev Care 40-64y(92212) Diagnoses Physical exam Z00.00 Screening PSA (prostate specific antigen) Z12.5
[2023-07-21 07:35] VITALS: BP 120/82; PULSE 63; O2SAT 98; BMI 29.1
== END 2023-07-21 07:56 | disposition home or self-care (01) ==
PROVIDERS: Visit Provider Nurse Practitioner Family
DX: Z00.00 Encounter for general adult medical examination without abnormal findings (principal); Z12.5 Encounter for screening for malignant neoplasm of prostate
CPT/HCPCS: 99396

== ENCOUNTER 2023-07-21 07:57 | Outpatient (REF) | payer BC, SELFPAY | END 2023-07-21 07:58 | disposition home or self-care (01) | LOC: HO.HMGCLDS 07:57 | PROVIDERS: PCP Nurse Practitioner Family; Visit Provider Nurse Practitioner Family | DX: Z00.00 Encounter for general adult medical examination without abnormal findings (principal); Z12.5 Encounter for screening for malignant neoplasm of prostate; E78.5 Hyperlipidemia, unspecified; I10 Essential (primary) hypertension | CPT/HCPCS: 36415; 80053; 80061; 81003; 84153; 84443; 85025 ==

== ENCOUNTER 2024-03-30 09:42 | Outpatient (AMB) | payer BC, SELFPAY ==
--- NOTE | 2024-03-30 09:48 | MHC.OFFVIS ---
Vital Signs 03/30/24 09:59 Height 5 ft 10 in Weight 200 lb BMI 28.7 BP 163/70 H Blood Pressure Location Lt brachial Position Sitting Pulse 70 Intake Visit Reasons: incisional pain, umbilical hernia Intake Note: Patient is seen in office for recurrent groin pain-incisional pain, poss umbilical hernia. Pt c/o: painful when squatting, bending in the groin area, does heavy lifting at work, lump on the umbilical area, reducible, denies c/d/n/v or other symptoms Preparation Plant Repairer Required: No Accompanied by: Self / Same As Patient Allergies Seasonal Allergies Allergy (Mild, Verified 03/30/24 09:56) runny nose, post nasal drip Medication List - Last Reconciled 03/30/24 by Jann Thompson MD amlodipine 2.5 mg PO DAILY esomeprazole magnesium 40 mg PO DAILY levocetirizine (Xyzal) 5 mg PO DAILY lisinopril 20 mg PO DAILY rosuvastatin 20 mg PO DAILY HPI Comments Details: 53-year-old male patient with a prior history of a left inguinal hernia repair on 10/14/2020 returning today with a one-week history of pain in the left groin. 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 He suddenly felt a sharp pull in the left groin which extended into the left back. The pain persisted for several hours but has now decreased in severity. He has been taking it easy since this occurred and generally feels better but still has some tenderness when the left groin is palpated. He denies any palpable lump, nausea or vomiting. He denies any symptoms in the right side. [facility] Medical History COVID-19 vaccine series completed HTN (hypertension) Left inguinal hernia Right hand paresthesia Chronic fatigue GERD (gastroesophageal reflux disease) Gout SARIAH (obstructive sleep apnea) Surgical History H/O left inguinal hernia repair History of esophagogastroduodenoscopy (EGD) Hx of lumbar discectomy History of carpal tunnel surgery of right wrist (~2016) History of knee surgery (~2002) History of repair of rotator cuff (~2005) Family History Mother History of lung cancer Sister Substance use disorder Brother Substance use disorder Social History Household Members: Family Household Members Other:: can Housing: House Are you a primary health care manager to a significant other at home: No Do you presently have visiting nurse or other home services: No Alcohol intake: current Alcohol intake frequency: 0-2 drinks per day Alcohol type: beer Patient Tobacco Use Status: Never used Tobacco e-Cigarette/Vaping Use: Never Used Second Hand Smoke Exposure: No Current occupational status: employed Current occupation: [employer] Current occupational exposures/hazards: No Cognitive needs: No Hearing needs: No Vision needs: No Review of Systems Const All systems reviewed & are unremarkable except as noted in HPI and below Physical Exam Vital Signs: Last Vital Signs Pulse 70 03/30/24 09:59 BP 163/70 H 03/30/24 09:59 BMI result Body Mass Index 28.7 Const General: cooperative and no acute distress Nutritional Appearance: well nourished Orientation/consciousness: patient oriented x3 Limitations: no limitations HEENT Head: Yes normocephalic and Yes atraumatic Ears: hearing grossly normal bilaterally Resp Effort & Inspection: normal respiratory effort, no audible wheezes, no cough and no respiratory distress Cardio Jugular venous distension: no JVD GI Other: Tenderness noted in the left groin over the internal ring. No palpable hernia is appreciated with Valsalva maneuvers. No other area of tenderness appreciated. Findings could indicate weakening at the internal ring. Inspection: Yes normal to inspection Skin Other: Warm, dry, no rash Neuro General: patient oriented x3 Extrem General: Yes no clubbing, cyanosis or edema Assessment & Plan Assessment & Plan (1) Recurrent left inguinal hernia: Code(s): K40.91 - Unilateral inguinal hernia, without obstruction or gangrene, recurrent Category: Medical Plan 53-year-old male patient presenting with recurrent pain in the left groin after performing heavy lifting at work. Examination today reveals no palpable recurrent hernia although he does have point tenderness in the region of the internal ring. This could indicate weakening of the internal ring near the prior repair. I recommended further evaluation with CT of the pelvis. He will return following the CT to review those results and discuss treatment options. Orders: Orders CT abdomen pelvis wo IV con Today K40.91 - Unilateral inguinal hernia, without obstruction or gangrene, recurrent Coding Level of Care Code New Pt Level 4 (49201) Diagnoses Recurrent left inguinal hernia K40.91
[2024-03-30 09:59] VITALS: BP 163/70; PULSE 70; BMI 28.7
== END 2024-03-30 10:22 | disposition home or self-care (01) ==
PROVIDERS: PCP Nurse Practitioner Family; Visit Provider Surgery
DX: K40.91 Unilateral inguinal hernia, without obstruction or gangrene, recurrent (principal)
CPT/HCPCS: 99203

== ENCOUNTER → 2024-03-30 09:42 | Outpatient (BNVA) | payer BC, SELFPAY | PROVIDERS: PCP Nurse Practitioner Family; Visit Provider Surgery ==

== ENCOUNTER 2024-05-05 14:51 | Outpatient (REF) | payer BC, SELFPAY ==
--- NOTE | ~2024-05-05 | CT_ITS ---
EXAMINATION: CT ABDOMEN AND PELVIS WITHOUT CONTRAST CLINICAL INFORMATION: Unilateral inguinal hernia without obstruction or gangrene. COMPARISON: CT abdomen and pelvis 08/22/2020. TECHNIQUE: Multidetector volumetric imaging was performed from the superior aspect of the liver through the pubic symphysis. Sagittal and coronal reformatted images were obtained on the technologist's workstation. This CT examination was performed using dose optimization techniques as appropriate, variously including the following: *Automated exposure control. *Adjustment of mA and/or kV according to patient size (this includes techniques or standardized protocols for targeted exams where dose is matched to indication/reason for exam; i.e. extremities or head). *Use of iterative reconstruction technique. DLP: 530 mGy-cm FINDINGS: LUNG BASES: The visualized lung bases are unremarkable aside from the presence of some mild bronchial thickening. LIVER, GALLBLADDER, AND BILIARY TREE: The liver is enlarged to 21 cm in greatest length with decreased attenuation suggesting hepatic steatosis. No focal hepatic lesion or biliary ductal dilatation is present. The gallbladder is very contracted but otherwise unremarkable with no evidence of radiopaque gallstones, gallbladder wall thickening, or obvious pericholecystic inflammatory changes. PANCREAS: Unremarkable. SPLEEN: Spleen is mildly enlarged at 12.4 cm. ADRENAL GLANDS: Unremarkable. KIDNEYS AND URETERS: The kidneys are normal in size, shape, and attenuation. No hydronephrosis, hydroureter, or calculi seen. No perinephric stranding. BLADDER: Unremarkable. A thin urachal remnant is present. GASTROINTESTINAL TRACT: The small and large bowel are unremarkable aside from colonic diverticula without diverticulitis. The appendix is unremarkable. ABDOMINAL WALL: No significant hernia is appreciated. . Previously seen tiny fat-containing left inguinal hernia repairs even less apparent on the current study. LYMPH NODES: No retroperitoneal lymphadenopathy. VASCULAR: Unremarkable. PELVIC VISCERA: The prostate and seminal vesicles are unremarkable. OSSEOUS STRUCTURES: Mild degenerative changes are seen most marked at L5-S1. CT/CT abdomen pelvis wo IV con IMPRESSION: 1. No evidence of a significant hernia. 2. Enlarged fatty liver with mild splenomegaly. 3. Other incidental findings as described above. Fleischner guidelines were followed. Electronically signed by: Boyd Oshea MD 06/15/2024 11:02 PM EDT
== END 2024-05-05 14:52 | disposition home or self-care (01) ==
LOC: HO.CT 14:51
PROVIDERS: PCP Nurse Practitioner Family; Visit Provider Surgery
DX: K40.91 Unilateral inguinal hernia, without obstruction or gangrene, recurrent (principal)
CPT/HCPCS: 74176

== ENCOUNTER 2024-05-16 12:45 | Outpatient (AMB) | payer BC, SELFPAY ==
--- NOTE | 2024-05-16 12:51 | A.OFFVIS_ITS ---
Intake Visit Reasons: ct scan results, following pain in the left groin Intake Note: Patient is seen in office for CT scan results, following left groin pain. Pt c/o: continued discomfort, here for results CT: 05/05/24 Account Support Analyst Required: No Accompanied by: Self / Same As Patient Allergies Seasonal Allergies Allergy (Mild, Verified 03/30/24 09:56) runny nose, post nasal drip Medication List - Last Reconciled 05/16/24 by Jann Thompson MD amlodipine 2.5 mg PO DAILY esomeprazole magnesium 40 mg PO DAILY levocetirizine (Xyzal) 5 mg PO DAILY lisinopril 20 mg PO DAILY rosuvastatin 20 mg PO DAILY HPI Comments Details: 53-year-old male patient with a prior history of a left inguinal hernia repair on 10/14/2020 returning today with a a recent history of pain in the left groin. 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 He suddenly felt a sharp pull in the left groin which radiated into the left back. Since his last visit, the pain is not as severe and is more of a dull ache. He has been doing lifting at work and generally feels well. She underwent a CT of the pelvis on 05/05/2024. This revealed the previous left inguinal hernia repair with no evidence of recurrent hernia (final read is not available at the time of this dictation). [facility] Medical History COVID-19 vaccine series completed HTN (hypertension) Left inguinal hernia Right hand paresthesia Chronic fatigue GERD (gastroesophageal reflux disease) Gout SARIAH (obstructive sleep apnea) Surgical History H/O left inguinal hernia repair History of esophagogastroduodenoscopy (EGD) Hx of lumbar discectomy History of carpal tunnel surgery of right wrist (~2016) History of knee surgery (~2002) History of repair of rotator cuff (~2005) Family History Mother History of lung cancer Sister Substance use disorder Brother Substance use disorder Social History Household Members: Family Household Members Other:: can Housing: House Are you a primary care technician to a significant other at home: No Do you presently have visiting nurse or other home services: No Alcohol intake: current Alcohol intake frequency: 0-2 drinks per day Alcohol type: beer Patient Tobacco Use Status: Never used Tobacco e-Cigarette/Vaping Use: Never Used Second Hand Smoke Exposure: No Current occupational status: employed Current occupation: [employer] Current occupational exposures/hazards: No Cognitive needs: No Hearing needs: No Vision needs: No Review of Systems Const All systems reviewed & are unremarkable except as noted in HPI and below Physical Exam Const General: cooperative and no acute distress Nutritional Appearance: well nourished Orientation/consciousness: patient oriented x3 Limitations: no limitations HEENT Head: Yes normocephalic and Yes atraumatic Ears: hearing grossly normal bilaterally Resp Effort & Inspection: normal respiratory effort, no audible wheezes, no cough and no respiratory distress Cardio Jugular venous distension: no JVD GI Other: Palpable umbilical hernia noted in the inferior surface of the umbilicus. No palpable left inguinal hernia. Inspection: Yes normal to inspection Abdomen image: 2 1. Umbilical hernia Skin Other: Warm, dry, no rash Neuro General: patient oriented x3 Extrem General: Yes no clubbing, cyanosis or edema Assessment & Plan Assessment & Plan (1) Umbilical hernia: Code(s): K42.9 - Umbilical hernia without obstruction or gangrene Category: Medical Qualifiers: Obstruction and gangrene presence: without obstruction or gangrene Q ualified Code(s): K42.9 - Umbilical hernia without obstruction or gangrene Plan Patient returns for evaluation of a left inguinal hernia. Workup with CT of the pelvis was negative for recurrent hernia. Postoperative changes were identified following the previous repair. In general the patient feels improved with decreased discomfort in the left groin. He does note a small umbilical hernia. The hernia is reducible and is not causing any discomfort at this time. I recommended continued observation with follow-up should symptoms develop. Expressed understanding and agrees with the plan. Coding Level of Care Code Est Pt Level 3 (64180) Diagnoses Umbilical hernia without obstruction and without gangrene K42.9 Obstruction and gangrene presence: without obstruction or gangrene
== END 2024-05-16 13:08 | disposition home or self-care (01) ==
PROVIDERS: PCP Nurse Practitioner Family; Visit Provider Surgery
DX: K42.9 Umbilical hernia without obstruction or gangrene (principal)
CPT/HCPCS: 99213

== ENCOUNTER → 2024-05-16 12:45 | Outpatient (BNVA) | payer BC, SELFPAY | PROVIDERS: PCP Nurse Practitioner Family; Visit Provider Surgery ==

== ENCOUNTER 2024-08-10 16:16 | Outpatient (AMB) | payer BC, SELFPAY ==
--- NOTE | 2024-08-10 16:22 | A.OFFPC_ITS ---
Vital Signs 08/10/24 16:23 Height 5 ft 10 in Weight 199 lb 4 oz BMI 28.6 BP 130/80 Blood Pressure Location Rt brachial Position Sitting Pulse 67 Pulse Source Pulse Oximeter Pulse Oximetry (%) 96 Oxygen Delivery Method Room Air Intake Visit Reasons: Annual PE Intake Note: pt is here for annual exam Translator And Interpreter Required: No Allergies Seasonal Allergies Allergy (Mild, Verified 08/10/24 16:23) runny nose, post nasal drip Medication List - Last Reconciled 08/10/24 by Марина Fu NP amlodipine 2.5 mg PO DAILY esomeprazole magnesium 40 mg PO DAILY levocetirizine (Xyzal) 5 mg PO DAILY lisinopril 20 mg PO DAILY rosuvastatin 20 mg PO DAILY Tobacco use date assessed: 08/10/24 Dental Screening Dental Screen Date: 08/10/24 Did you have a dental visit in the last 12 months?: Yes Did you have a dental problem in the last 6 months where you did not have access to dental care?: No Was dental information given to patient?: Patient has dentist HPI HPI Comments History of Present Illness Details 53 y/o male patient who presents to the clinic today for PE. He is a patient of Jann Gross. PMHx significant for HTN, GERD, Umbilical hernia, and Dyslipidemia. Pt c/o Tinnitus on Bilateral ears for years now. Had Colonoscopy 08/2021, benign Polyps. Medications reviewed today, and refills placed. [facility] Medical History (Updated 08/10/24 @ 16:59 by Марина Fu NP) COVID-19 vaccine series completed HTN (hypertension) Left inguinal hernia Right hand paresthesia Chronic fatigue GERD (gastroesophageal reflux disease) Gout SARIAH (obstructive sleep apnea) Surgical History H/O left inguinal hernia repair History of esophagogastroduodenoscopy (EGD) Hx of lumbar discectomy History of carpal tunnel surgery of right wrist (~2016) History of knee surgery (~2002) History of repair of rotator cuff (~2005) Family History Mother History of lung cancer Sister Substance use disorder Brother Substance use disorder Social History (Reviewed 08/10/24 @ 16:23 by Juan Diego [facility] Household Members: Family Household Members Other:: can Housing: House Are you a primary senior care manager to a significant other at home: No Do you presently have visiting nurse or other home services: No Alcohol intake: current Alcohol intake frequency: 0-2 drinks per day Alcohol type: beer Patient Tobacco Use Status: Never used Tobacco e-Cigarette/Vaping Use: Never Used Second Hand Smoke Exposure: No Current occupational status: employed Current occupation: [employer] Current occupational exposures/hazards: No Cognitive needs: No Hearing needs: No Vision needs: No Questionnaire PHQ-9 Over the last 2 weeks, how often have you been bothered by any of the following problems? 1. Little interest or pleasure in doing things: not at all 2. Feeling down, depressed, or hopeless: not at all 3. Trouble falling or staying asleep, or sleeping too much: not at all 4. Feeling tired or having little energy: not at all 5. Poor appetite or overeating: not at all 6. Feeling bad about yourself - or that you are a failure or have let yourself or your family down: not at all 7. Trouble concentrating on things, such as reading the newspaper or watching television: not at all 8. Moving or speaking so slowly that other people could have noticed. Or the opposite - being so fidgety or restless that you have been moving around a lot more than usual: not at all 9. Thoughts that you would be better off or of hurting yourself in some way: not at all Total score: 0 Depression Screening Interpretation: Negative Depression Screening Done: Yes 57474 - PHQ-9 Billing: Yes Source: Developed by Drs. Manjeet Sandra, Francy Singh, Juwan Sanches and colleagues, with an educational divya from [employer]. Thrive Questionnaire Date Thrive assessed: 08/10/24 I am a: Patient What is your living situation today?: I have a steady place to live Within the past 12 months, did the food you bought not last and you didn't have the money to get more?: Never true Within the past 12 months, did you worry whether your food would run out before you got money to buy more?: Never true Do you have trouble paying for medicines?: No Do you have trouble getting transportation to medical appointments?: No Do you have trouble paying your heating and electricity bill?: No Do you have trouble taking care of your child, family member or friend?: No Do you have trouble with day-to-day activities such as bathing, preparing meals, shopping, managing finances, etc.?: No Are you currently unemployed and looking for a job?: No Are you interested in more education?: No Please select the resources that you would like help with: None Currently or been in a relationship where the following occur: No concerns reported THRIVE Score: 0 AUDIT C Alcohol Use Questionnaire (AUDIT-C) 1. How often do you have a drink containing alcohol?: 2-3 times a week 2. How many drinks containing alcohol do you have on a typical day when you are drinking?: 1 or 2 3. How often do you have six or more drinks on one occasion?: Less than monthly Total Score: 4 Score Reviewed/Action Taken: Yes LIS-7 AMB Questionnaire LIS-7 Date LIS - 7 assessed: 08/10/24 Feeling nervous, anxious, or on edge: 0 = Not at all Not being able to stop or control worryin = Not at all Worrying too much about different things: 0 = Not at all Trouble relaxin = Not at all Being so restless that it is hard to sit still: 0 = Not at all Becoming easily annoyed or irritable: 0 = Not at all Feeling afraid as if something awful might happen: 0 = Not at all Total LIS-7 score (0-4 normal; 5-9 mild; 10-14 moderate; 15-21 severe): 0 Source: Developed by Drs. Manjeet Sandra, Francy Singh, Juwan Sanches and colleagues, with an educational divya from [employer]. LIS-7 Assessment Billing LIS-7 Assessment Tool: LIS-7 Assessment 07477 Review of Systems Const All systems reviewed & are unremarkable except as noted in HPI and below Physical exam (Primary Care) Vital Signs: Last Vital Signs Pulse 67 08/10/24 16:23 BP 130/80 08/10/24 16:23 Pulse Ox 96 08/10/24 16:23 Oxygen Delivery Method Room Air 08/10/24 16:23 BMI result Body Mass Index 28.6 Tobacco/Smoking Status: Tobacco use Status Tobacco use date assessed 08/10/24 08/10/24 16:28 Patient Tobacco Use Status Never used Tobacco 08/10/24 16:28 e-Cigarette/Vaping Use Never Used 08/10/24 16:28 PHQ-9: PHQ-9 Score PHQ-9: Total score 0 08/10/24 16:28 Depression Screening Interpretation: Negative Thrive Assessment: Date of Thrive Assessment Date Thrive assessed 08/10/24 08/10/24 16:28 Currently or been in a relationship where the following occur: No concerns reported Const General: cooperative, comfortable and no acute distress Nutritional Appearance: overweight Orientation/consciousness: patient oriented x3 HENMT Head: Yes normocephalic Ears: external ears normal and TM's normal bilaterally General nose exam: Normal external nose present and Normal nasal mucous membranes and turbinates present Face and sinus: Yes sinuses nontender Mouth: moist mucous membranes Throat: Yes tonsils normal and Yes uvula midline Eyes Pupils: Equal, round and reactive pupils present EOM: EOMs intact bilaterally Neck Neck: Yes full ROM and Yes no lymphadenopathy Resp Effort & Inspection: normal respiratory effort and able to speak in complete sentences Auscultation: clear to auscultation bilaterally Percussion: percussion normal Cardio Heart sounds: S1 normal heart sound present and S2 normal heart sound present GI Inspection: Yes normal to inspection and Yes obesity Palpation (GI): Soft to palpation, not firm, nontender, no guarding, not rigid, No hepatosplenomegaly present and Hernia present umbilical Auscultation: normal bowel sounds Rectal Exam - Male: Yes deferred General: Yes no CVA tenderness Back/Spine/Pelvis Back: no CVA tenderness and No back tenderness Skin General skin exam: no rashes or lesions noted Neuro General: patient oriented x3, gait normal and moves all extremities Cranial nerves: Yes Equal, round and reactive pupils present Motor exam (neuro): 5/5 motor strength present throughout Extrem General: Yes full ROM Psych Speech and movement: Normal speech and movement present Coding Level of Care Code Est Pt Prev Care 40-64y(41554) Diagnoses Gastroesophageal reflux disease without esophagitis K21.9 Esophagitis presence: without esophagitis Encounter for routine adult health examination without abnormal findings Z00.00 Primary hypertension I10 Hypertension type: primary hypertension Dyslipidemia E78.5 Umbilical hernia without obstruction and without gangrene K42.9 Obstruction and gangrene presence: without obstruction or gangrene Additional Codes LIS-7 Assessment Billing - LIS-7 Assessment Tool: LIS-7 Assessment 40096 ([id number]) Time Spent (min) 30 Comment CPE Assessment & Plan Assessment & Plan (1) GERD (gastroesophageal reflux disease): Code(s): K21.9 - Gastro-esophageal reflux disease without esophagitis Category: Medical Qualifiers: Esophagitis presence: without esophagitis Qualified Code(s): K21.9 - Gastro-esophageal reflux disease without esophagitis Plan: Continue on current regiment (2) Encounter for routine adult health examination without abnormal findings: Code(s): Z00.00 - Encounter for general adult medical examination without abnormal findings Plan: Exam WNL (3) HTN (hypertension): Code(s): I10 - Essential (primary) hypertension Category: Medical Qualifiers: Hypertension type: primary hypertension Qualified Code(s): I10 - E ssential (primary) hypertension Plan: Stable, Continue on current regiment. (4) Dyslipidemia: Code(s): E78.5 - Hyperlipidemia, unspecified Category: Medical Plan: Ordered fasting labs. (5) Umbilical hernia: Code(s): K42.9 - Umbilical hernia without obstruction or gangrene Category: Medical Qualifiers: Obstruction and gangrene presence: without obstruction or gangrene Qualified Code(s): K42.9 - Umbilical hernia without obstruction or gangrene Plan: Stable for now. Orders: Orders Complete Blood Count Auto Diff Today E78.5 - Hyperlipidemia, unspecified, I10 - Essential (primary) hypertension TSH reflex Free T4 Today E78.5 - Hyperlipidemia, unspecified, I10 - Essential (primary) hypertension, Z00.00 - Encounter for general adult medical examination without abnormal findings Hemoglobin A1c Today E78.5 - Hyperlipidemia, unspecified, I10 - Essential (primary) hypertension Lipid Panel Today E78.5 - Hyperlipidemia, unspecified, I10 - Essential (primary) hypertension, Z00.00 - Encounter for general adult medical examination without abnormal findings Comprehensive Met. Panel Today E78.5 - Hyperlipidemia, unspecified, I10 - Essential (primary) hypertension, Z00.00 - Encounter for general adult medical examination without abnormal findings
[2024-08-10 16:23] VITALS: BP 130/80; PULSE 67; O2SAT 96; BMI 28.6
== END 2024-08-10 16:47 | disposition home or self-care (01) ==
LOC: HO.HMCC 16:17
PROVIDERS: PCP Nurse Practitioner Family; Visit Provider Nurse Practitioner Family
DX: K21.9 Gastro-esophageal reflux disease without esophagitis (principal); Z00.00 Encounter for general adult medical examination without abnormal findings; I10 Essential (primary) hypertension; E78.5 Hyperlipidemia, unspecified; K42.9 Umbilical hernia without obstruction or gangrene

== ENCOUNTER → 2024-08-10 16:16 | Outpatient (BNVA) | payer BC, SELFPAY | PROVIDERS: PCP Nurse Practitioner Family; Visit Provider Nurse Practitioner Family | DX: Z00.00 Encounter for general adult medical examination without abnormal findings (principal); K21.9 Gastro-esophageal reflux disease without esophagitis; I10 Essential (primary) hypertension; K42.9 Umbilical hernia without obstruction or gangrene | CPT/HCPCS: 96127 ==

== ENCOUNTER 2024-08-18 07:26 | Outpatient (REF) | payer BC, SELFPAY ==
[2024-08-18 08:02] LABS: Basophils Absolute Auto 0.1 X10*3/uL (0.0-0.2); Basophils Percent Auto 0.7 % (0-2); Eosinophils Absolute Auto 0.3 X10*3/uL (0.0-0.4); Eosinophils Percent Auto 3.4 % (0-4); Hematocrit 44.6 % (42.0-52.0); Hemoglobin 15.6 g/dl (14.0-18.0); Imm Gran Abs Auto 0.05 X10*3/uL (0.00-0.03); Imm Gran Pct Auto 0.7 % (0.0-0.4); Lymphocytes Percent Auto 26.8 % (20-40); MANUAL DIFF FLAG NO; Mean Corpuscular Hemoglobin 31.2 pg (27.0-33.0); Mean Corpuscular Volume 89.2 fL (80.0-98.0); Monocytes Absolute Auto 0.7 X10*3/uL (0.1-1.2); Neutrophils Absolute Auto 4.3 x10*3/uL (2.0-8.3); Neutrophils Percent Auto 58.4 % (45-73); Platelet Count 301 X10*3/uL (160-400); Red Cell Distribution Width 12.8 % (11.0-16.0); White Blood Count 7.4 X10*3/uL (4.8-10.8)
[2024-08-18 08:25] LABS: Estimated Average Glucose 117 mg/dL; Hemoglobin A1C 162.4097 umol/L; Hemoglobin A1c % 5.7 % (<6.0); Total Hemoglobin (HGBA1C) 4205.7339 umol/L
[2024-08-18 08:38] LABS: Alanine Aminotransferase 52 U/L (0-40); Albumin Level 4.3 g/dL (3.5-5.0); Alkaline Phosphatase 73 U/L (39-117); Anion Gap 13 (12-20); Aspartate Amino Transferase 38 U/L (5-37); Bilirubin Total 0.4 mg/dL (0.0-1.0); Blood Urea Nitrogen 16 mg/dL (9-16); Calcium 9.2 mg/dL (8.4-10.2); Carbon Dioxide 28 mmol/L (22-29); Chloride 103 mmol/L (96-108); Cholesterol 220 mg/dL (<200); Estimated Glomerular Filt Rate > 60; Glucose Fasting 110 mg/dL (60-99); Glucose Random 109 mg/dL (60-115); HDL Cholesterol 58 mg/dL (>40); LDL Cholesterol Calculated 134 mg/dL (<100); Potassium 4.6 mmol/L (3.3-5.1); Sodium 139 mmol/L (135-145); Total Protein 6.7 g/dL (6.5-8.0); Triglycerides 143 mg/dL (<150)
[2024-08-18 08:41] LABS: Cholesterol 222 mg/dL (<200); HDL Cholesterol 60 mg/dL (>40); LDL Cholesterol Calculated 133 mg/dL (<100); Triglycerides 146 mg/dL (<150)
[2024-08-18 09:01] LABS: TSH reflex Free T4 1.68 uIU/mL (0.32-4.0)
== END 2024-08-18 07:27 | disposition home or self-care (01) ==
LOC: HO.LAB 07:26
PROVIDERS: PCP Nurse Practitioner Family; Visit Provider Nurse Practitioner Family
DX: Z00.00 Encounter for general adult medical examination without abnormal findings (principal); E78.5 Hyperlipidemia, unspecified; I10 Essential (primary) hypertension; Z13.1 Encounter for screening for diabetes mellitus
CPT/HCPCS: 36415; 80053; 80061; 83036; 84443; 85025

== ENCOUNTER 2025-02-12 09:52 | Outpatient (AMB) | payer BC, SELFPAY ==
[2025-02-12 09:54] VITALS: BP 136/82; PULSE 71; O2SAT 98; BMI 29.3
--- NOTE | 2025-02-12 09:54 | A.OFFPC_ITS ---
Vital Signs 02/12/25 09:54 Height 5 ft 10 in Weight 204 lb BMI 29.3 BP 136/82 Blood Pressure Location Lt brachial Position Sitting Pulse 71 Pulse Source Pulse Oximeter Pulse Oximetry (%) 98 Oxygen Delivery Method Room Air Intake Visit Reasons: 6 months follow up Hydrogen Operator Required: No Accompanied by: Self / Same As Patient Allergies Seasonal Allergies Allergy (Mild, Verified 02/12/25 09:54) runny nose, post nasal drip Medication List - Last Reconciled 02/12/25 [facility] amlodipine 2.5 mg PO DAILY esomeprazole magnesium 40 mg PO DAILY levocetirizine (Xyzal) 5 mg PO DAILY lisinopril 20 mg PO DAILY rosuvastatin 20 mg PO DAILY Tobacco use date assessed: 02/12/25 Dental Screening Dental Screen Date: 02/12/25 Did you have a dental visit in the last 12 months?: Yes Did you have a dental problem in the last 6 months where you did not have access to dental care?: No Was dental information given to patient?: Patient has dentist HPI 6 months follow up HPI Details Chief Complaint The patient presents for follow-up of dyslipidemia and ongoing right foot pain. History of Present Illness The patient is a 54-year-old male presenting with dyslipidemia and persistent right foot pain. Dyslipidemia management is ongoing, with laboratory tests ordered to evaluate cholesterol and overall liver and kidney function. The right foot pain began two years ago, coinciding with a significant event marked by a popping feeling on the plantar side while using stairs. This has led to ongoing discomfort, specifically during physical pressure on the plantar region, suggesting plantar fasciitis. Rehabilitation efforts at home have been insufficient, warranting further evaluation. The patient reports tenderness in the plantar sole of the right foot, a typical feature of plantar fasciitis, particularly noticeable during dorsiflexion and palpation. He denies symptoms such as chest pain, dyspnea, dizziness, visual disturbances, or headaches. Social History Health Maintenance Review of Systems - Cardiovascular: Denies chest pain. - Respiratory: Denies shortness of breat h. - Neurological: Denies dizziness and hea daches. - Ophthalmological: Denies blurred visio n. Physical Exam General: Cooperative, healthy appearing, comfortable, no acute distress and well developed Orientation: Patient oriented x3 Limitations: No limitations Head: Normal to inspection Ears: Hearing grossly normal bilaterally Nose: Normal external nose present Face and sinus: Normal facial exam Eyes: Appearance normal, both eyes and all related structures Neck: Normal visual inspection and Yes full ROM Respiratory: Normal respiratory effort and able to speak in complete sentences. Clear to auscultation bilaterally Cardiovascular: Regular rate and rhythm. Normal S1 and S2 GI: Normal to inspection. Soft to palpation and nontender Skin: No rashes or lesions noted Neuro: Patient oriented x3 Extremities: Normal to inspection except for tenderness in the plantar sole region of the right foot, consistent with plantar fasciitis. No edema noted. Results - Labs: Cholesterol, liver function, and kidney function tests ordered. Plan I have ordered laboratory tests to evaluate the patient's cholesterol levels and monitor liver and kidney functions, which are essential in addressing his dyslipidemia management strategy. I am referring the patient to podiatry for further assessment and treatment of the chronic right plantar fasciitis, considering the ongoing pain despite home rehabilitation attempts. This referral is to facilitate expert management and explore additional interventions that may be required for alleviating the discomfort and improving foot function. Discussion Notes I discussed with the patient the need for continued monitoring of his dyslipidemia through the ordered laboratory tests. We reviewed the consistent pain in his right foot and identified it as likely plantar fasciitis. I communicated the decision to refer him to podiatry, highlighting that specialized care may help address the persistent nature of his discomfort. The patient understands the steps we are taking and agrees with the plan, which includes further assessing his cholesterol-related health and addressing the foot condition. Patient Instructions - Follow up with laboratory testing as o rdered to monitor cholesterol and organ functions. - Attend the referred podiatry appointme nt to evaluate ongoing right foot pain. - Continue any prescribed or recommended treatments for lipid management. - Report any new symptoms or changes to your health condition. [facility] Medical History COVID-19 vaccine series completed HTN (hypertension) Left inguinal hernia Right hand paresthesia Chronic fatigue GERD (gastroesophageal reflux disease) Gout SARIAH (obstructive sleep apnea) Surgical History H/O left inguinal hernia repair History of esophagogastroduodenoscopy (EGD) Hx of lumbar discectomy History of carpal tunnel surgery of right wrist (~2016) History of knee surgery (~2002) History of repair of rotator cuff (~2005) Family History Mother History of lung cancer Sister Substance use disorder Brother Substance use disorder Social History Household Members: Family Household Members Other:: can Housing: House Are you a primary child care director to a significant other at home: No Do you presently have visiting nurse or other home services: No Alcohol intake: current Alcohol intake frequency: 0-2 drinks per day Alcohol type: beer Patient Tobacco Use Status: Never used Tobacco e-Cigarette/Vaping Use: Never Used Second Hand Smoke Exposure: No Current occupational status: employed Current occupation: [employer] Current occupational exposures/hazards: No Cognitive needs: No Hearing needs: No Vision needs: No Questionnaire PHQ-9 Over the last 2 weeks, how often have you been bothered by any of the following problems? 1. Little interest or pleasure in doing things: not at all 2. Feeling down, depressed, or hopeless: not at all 3. Trouble falling or staying asleep, or sleeping too much: several days 4. Feeling tired or having little energy: several days 5. Poor appetite or overeating: not at all 6. Feeling bad about yourself - or that you are a failure or have let yourself or your family down: not at all 7. Trouble concentrating on things, such as reading the newspaper or watching television: not at all 8. Moving or speaking so slowly that other people could have noticed. Or the opposite - being so fidgety or restless that you have been moving around a lot more than usual: not at all 9. Thoughts that you would be better off or of hurting yourself in some way: not at all Total score: 2 Depression Screening Interpretation: Negative Depression Screening Done: Yes 67277 - PHQ-9 Billing: Yes Source: Developed by Drs. Manjeet Sandra, Francy Singh, Juwan Sanches and colleagues, with an educational divya from [employer] Thrive Questionnaire Date Thrive assessed: 02/12/25 I am a: Patient What is your living situation today?: I have a steady place to live Within the past 12 months, did the food you bought not last and you didn't have the money to get more?: Never true Within the past 12 months, did you worry whether your food would run out before you got money to buy more?: Never true Do you have trouble paying for medicines?: No Do you have trouble getting transportation to medical appointments?: No Do you have trouble paying your heating and electricity bill?: No Do you have trouble taking care of your child, family member or friend?: No Do you have trouble with day-to-day activities such as bathing, preparing meals, shopping, managing finances, etc.?: No Are you currently unemployed and looking for a job?: No Are you interested in more education?: No Please select the resources that you would like help with: None Currently or been in a relationship where the following occur: No concerns reported THRIVE Score: 0 AUDIT C Alcohol Use Questionnaire (AUDIT-C) 1. How often do you have a drink containing alcohol?: 2-3 times a week 2. How many drinks containing alcohol do you have on a typical day when you are drinking?: 1 or 2 3. How often do you have six or more drinks on one occasion?: Never Total Score: 3 Score Reviewed/Action Taken: Yes LIS-7 AMB Questionnaire LIS-7 Date LIS - 7 assessed: 02/12/25 Feeling nervous, anxious, or on edge: 0 = Not at all Not being able to stop or control worryin = Not at all Worrying too much about different things: 0 = Not at all Trouble relaxin = Not at all Being so restless that it is hard to sit still: 0 = Not at all Becoming easily annoyed or irritable: 1 = Several days Feeling afraid as if something awful might happen: 0 = Not at all Total LIS-7 score (0-4 normal; 5-9 mild; 10-14 moderate; 15-21 severe): 1 Source: Developed by Drs. Manjeet Sandra, Francy Singh, Juwan Sanches and colleagues, with an educational divya from [employer] LIS-7 Assessment Billing LIS-7 Assessment Tool: LIS-7 Assessment 27681 Physical exam (Primary Care) Vital Signs: Last Vital Signs Pulse 71 02/12/25 09:54 BP 136/82 02/12/25 09:54 Pulse Ox 98 02/12/25 09:54 Oxygen Delivery Method Room Air 02/12/25 09:54 BMI result Body Mass Index 29.3 Tobacco/Smoking Status: Tobacco use Status Tobacco use date assessed 02/12/25 02/12/25 09:56 Patient Tobacco Use Status Never used Tobacco 02/12/25 09:56 e-Cigarette/Vaping Use Never Used 02/12/25 09:56 PHQ-9: PHQ-9 Score PHQ-9: Total score 2 02/12/25 10:01 Depression Screening Interpretation: Negative Thrive Assessment: Date of Thrive Assessment Date Thrive assessed 02/12/25 02/12/25 09:56 Currently or been in a relationship where the following occur: No concerns reported Coding Level of Care Code Est Pt Level 4 (69894) Diagnoses Dyslipidemia E78.5 Screening PSA (prostate specific antigen) Z12.5 Right foot pain M79.671 Additional Codes LIS-7 Assessment Billing - LIS-7 Assessment Tool: LIS-7 Assessment 90255 ([id number]) PHQ-9 - 28627 - PHQ-9 Billing: Yes ([id number]) Assessment & Plan Assessment & Plan (1) Dyslipidemia: Code(s): E78.5 - Hyperlipidemia, unspecified Category: Medical (2) Screening PSA (prostate specific antigen): Code(s): Z12.5 - Encounter for screening for malignant neoplasm of prostate Category: Medical (3) Right foot pain: Code(s): M79.671 - Pain in right foot Category: Medical Plan . Orders: Orders Complete Blood Count Auto Diff Today E78.5 - Hyperlipidemia, unspecified Comprehensive [place]. Panel Fast Today E78.5 - Hyperlipidemia, unspecified UA CC w/rflx Micro + Cult Today E78.5 - Hyperlipidemia, unspecified Lipid Panel Today E78.5 - Hyperlipidemia, unspecified Prostate Specific Antigen Scr Today Z12.5 - Encounter for screening for malignant neoplasm of prostate TSH reflex Free T4 Today E78.5 - Hyperlipidemia, unspecified Referrals Podiatry Referral M79.671 - Pain in right foot
== END 2025-02-12 10:13 | disposition home or self-care (01) ==
LOC: HO.HMCC 09:53
PROVIDERS: PCP Nurse Practitioner Family; Visit Provider Nurse Practitioner Family
DX: E78.5 Hyperlipidemia, unspecified (principal); Z12.5 Encounter for screening for malignant neoplasm of prostate; M79.671 Pain in right foot

== ENCOUNTER → 2025-02-12 09:52 | Outpatient (BNVA) | payer BC, SELFPAY | PROVIDERS: PCP Nurse Practitioner Family; Visit Provider Nurse Practitioner Family | DX: E78.5 Hyperlipidemia, unspecified (principal); M79.671 Pain in right foot | CPT/HCPCS: 96127 ==

== ENCOUNTER 2025-02-15 06:05 | Outpatient (REF) | payer BC, SELFPAY ==
[2025-02-15 06:15] LABS: MANUAL DIFF FLAG NO
[2025-02-15 07:24] LABS: Basophils Absolute Auto 0.1 X10*3/uL (0.0-0.2); Basophils Percent Auto 0.8 % (0-2); Eosinophils Absolute Auto 0.3 X10*3/uL (0.0-0.4); Eosinophils Percent Auto 3.5 % (0-4); Hematocrit 44.3 % (42.0-52.0); Hemoglobin 15.2 g/dl (14.0-18.0); Imm Gran Abs Auto 0.03 X10*3/uL (0.00-0.03); Imm Gran Pct Auto 0.4 % (0.0-0.4); Lymphocytes Absolute Auto 2.1 X10*3/uL (1.2-4.9); Mean Corpuscular HGB Conc 34.3 g/dl (31.0-36.0); Mean Corpuscular Volume 90.4 fL (80.0-98.0); Mean Platelet Volume 10.6 fL (9.4-12.4); Monocytes Absolute Auto 0.8 X10*3/uL (0.1-1.2); Neutrophils Absolute Auto 4.5 x10*3/uL (2.0-8.3); Neutrophils Percent Auto 58.3 % (45-73); Platelet Count 344 X10*3/uL (160-400); Red Cell Distribution Width 12.6 % (11.0-16.0); White Blood Count 7.6 X10*3/uL (4.8-10.8)
[2025-02-15 07:35] LABS: Appearance Urine Clear; Color Urine Yellow; Glucose Urine UA Negative (Negative); Leukocyte Esterase Urine Negative (Negative); Nitrite Urine Negative (Negative); Specific Gravity - Urine 1.015 (1.005-1.025); Urine Blood Negative (Negative); Urine Ketones Negative (Negative); Urine Protein Negative (Neg-Trace)
[2025-02-15 07:52] LABS: Alanine Aminotransferase 44 U/L (0-40); Albumin Level 4.5 g/dL (3.5-5.0); Alkaline Phosphatase 79 U/L (39-117); Anion Gap 12 (12-20); Aspartate Amino Transferase 32 U/L (5-37); Bilirubin Total 0.6 mg/dL (0.0-1.0); Blood Urea Nitrogen 14 mg/dL (9-16); Calcium 9.4 mg/dL (8.4-10.2); Carbon Dioxide 28 mmol/L (22-29); Chloride 105 mmol/L (96-108); Cholesterol 182 mg/dL (<200); Estimated Glomerular Filt Rate > 60; Glucose Fasting 104 mg/dL (60-99); HDL Cholesterol 53 mg/dL (>40); LDL Cholesterol Calculated 113 mg/dL (<100); Potassium 3.9 mmol/L (3.3-5.1); Sodium 141 mmol/L (135-145); Total Protein 6.8 g/dL (6.5-8.0); Triglycerides 80 mg/dL (<150)
[2025-02-15 08:06] LABS: Prostate Specific Antigen Scr 0.34 ng/mL (<0.05-4.0)
[2025-02-15 08:10] LABS: TSH reflex Free T4 1.16 uIU/mL (0.32-4.0)
== END 2025-02-15 06:06 | disposition home or self-care (01) ==
LOC: HO.LAB 06:05
PROVIDERS: PCP Nurse Practitioner Family; Visit Provider Nurse Practitioner Family
DX: E78.5 Hyperlipidemia, unspecified (principal); Z12.5 Encounter for screening for malignant neoplasm of prostate
CPT/HCPCS: 36415; 80053; 80061; 81003; 84153; 84443; 85025

== ENCOUNTER 2025-08-15 09:47 | Outpatient (AMB) | payer BC, SELFPAY ==
[2025-08-15 09:55] VITALS: BP 128/90; PULSE 64; RESP 16; O2SAT 97; BMI 29.0
--- NOTE | 2025-08-15 09:55 | A.OFFPC_ITS ---
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 Accompanied by: Self / Same As Patient Allergies Seasonal Allergies Allergy (Mild, Verified 08/15/25 10:50) runny nose, post nasal drip Medication List - Last Reconciled 08/15/25 by Jann Gross [facility]- amlodipine 2.5 mg PO DAILY esomeprazole magnesium 40 mg PO DAILY levocetirizine (Xyzal) 5 mg PO DAILY lisinopril 20 mg PO DAILY rosuvastatin 20 mg PO DAILY Tobacco use date assessed: 08/15/25 Dental Screening Dental Screen Date: 08/15/25 Did you have a dental visit in the last 12 months?: Yes Did you have a dental problem in the last 6 months where you did not have access to dental care?: No Was dental information given to patient?: Patient has dentist HPI Annual PE HPI Details History of Present Illness The patient is a 54-year-old male presenting for a physical exam. He reports significant allergies and experiences shortness of breath with heavy exertion. He had a previous emergency department visit two years ago for the same exertional shortness of breath, and the workup at that time was unremarkable. He has no known history of cardiac problems. Health Maintenance - The patient presented for a physical e xam. - The patient declined all vaccinations. Social History - Tobacco use: The patient has never smo ked. Review of Systems - Respiratory: Reports shortness of elba th upon heavy exertion. - HEENT: Reports congestion, postnasal d rip, and significant allergies. - Constitutional: Denies fevers or chill s. - Gastrointestinal: Denies blood in the stool, constipation, diarrhea, or abdominal pains. - Genitourinary: Denies any urinary symp toms. - Psychiatric: Denies suicidal or homici sherley ideation. Physical Exam General: Cooperative, healthy appearing, comfortable, no acute distress and well developed Orientation: Patient oriented x3 Limitations: No limitations Head: Normal to inspection Ears: Hearing grossly normal bilaterally Nose: Normal external nose present, does sound like he has some congestion postnasal drip nasal congestion Face and sinus: Normal facial exam Eyes: Appearance normal, both eyes and all related structures Neck: Normal visual inspection and Yes full ROM Respiratory: Lungs were fairly clear, normal respiratory effort and able to speak in complete sentences. Clear to auscultation bilaterally Cardiovascular: Regular rate and rhythm. Normal S1 and S2 GI: Normal to inspection. Soft to palpation and nontender, small umbilical hernia : Testicles without masses/lesions and no hernias appreciated Skin: No rashes or lesions noted Neuro: Patient oriented x3 Extremities: Normal to inspection Results Plan 1. Allergic Rhinitis The patient has significant allergies with congestion and postnasal drip. The plan is to increase Xyzal from once a day to twice a day. 2. Dyspnea The patient reports shortness of breath on heavy exertion. An emergency department visit two years prior for the same symptom yielded normal results. Although his lungs were clear on exam, a further workup is planned, including a chest x-ray, an EKG, and a probable stress test. 3. Encounter For General Adult Medical E xamination Without Abnormal Findings The patient is here for a physical exam. Lab orders have been entered. The patient declined all recommended vaccinations. Discussion Notes I have discussed with the patient that we will investigate his shortness of breath upon exertion. I advised him that although his lungs are fairly clear, I will be ordering a chest x-ray, an EKG today, and likely a stress test to rule out any underlying cardiac or pulmonary issues. For his allergies, I have recommended increasing his Xyzal dose to twice daily. I also informed him that lab orders have been entered for routine screening. I acknowledge his decision to decline all vaccinations at this time. Patient Instructions - Take a Xyzal tablet twice a day for yo ur allergies, instead of once a day. - You will have an EKG (a test that chec ks your heart's electrical activity) done in the office today. - We will get a chest x-ray to look at y our lungs. - We will likely also schedule a stress test for you to check your heart during exercise and a echo was ordered - Please go to the lab to have your bloo d drawn as ordered. -any worsening symptoms, ER [facility] Medical History Splenomegaly Fatty liver COVID-19 vaccine series completed HTN (hypertension) Left inguinal hernia Right hand paresthesia Chronic fatigue GERD (gastroesophageal reflux disease) Gout SARIAH (obstructive sleep apnea) Surgical History H/O left inguinal hernia repair History of esophagogastroduodenoscopy (EGD) Hx of lumbar discectomy History of carpal tunnel surgery of right wrist (~2016) History of knee surgery (~2002) History of repair of rotator cuff (~2005) Family History Mother History of lung cancer Sister Substance use disorder Brother Substance use disorder Social History Household Members: Family Household Members Other:: can Housing: House Are you a primary out of school hours care worker to a significant other at home: No Do you presently have visiting nurse or other home services: No Alcohol intake: current Alcohol intake frequency: 0-2 drinks per day Alcohol type: beer Patient Tobacco Use Status: Never used Tobacco e-Cigarette/Vaping Use: Never Used Second Hand Smoke Exposure: No Current occupational status: employed Current occupation: [employer] Current occupational exposures/hazards: No Cognitive needs: No Hearing needs: No Vision needs: No Questionnaire PHQ-9 Over the last 2 weeks, how often have you been bothered by any of the following problems? 1. Little interest or pleasure in doing things: not at all 2. Feeling down, depressed, or hopeless: not at all 3. Trouble falling or staying asleep, or sleeping too much: not at all 4. Feeling tired or having little energy: not at all 5. Poor appetite or overeating: not at all 6. Feeling bad about yourself - or that you are a failure or have let yourself or your family down: not at all 7. Trouble concentrating on things, such as reading the newspaper or watching television: not at all 8. Moving or speaking so slowly that other people could have noticed. Or the opposite - being so fidgety or restless that you have been moving around a lot more than usual: not at all 9. Thoughts that you would be better off or of hurting yourself in some way: not at all Total score: 0 Depression Screening Interpretation: Negative Depression Screening Done: Yes 21730 - PHQ-9 Billing: Patient declined-do not bill Source: Developed by Drs. Manjeet Sandra, Juwan Archer and colleagues, with an educational divya from [email or web address]. Thrive Questionnaire Date Thrive assessed: 02/05/25 I am a: Patient What is your living situation today?: I have a steady place to live Within the past 12 months, did the food you bought not last and you didn't have the money to get more?: Never true Within the past 12 months, did you worry whether your food would run out before you got money to buy more?: Never true Do you have trouble paying for medicines?: No Do you have trouble getting transportation to medical appointments?: No Do you have trouble paying your heating and electricity bill?: No Do you have trouble taking care of your child, family member or friend?: No Do you have trouble with day-to-day activities such as bathing, preparing meals, shopping, managing finances, etc.?: No Are you currently unemployed and looking for a job?: No Are you interested in more education?: No Please select the resources that you would like help with: None Currently or been in a relationship where the following occur: No concerns reported THRIVE Score: 0 LIS-7 AMB Questionnaire LIS-7 Date LIS - 7 assessed: 08/15/25 Feeling nervous, anxious, or on edge: 0 = Not at all Not being able to stop or control worryin = Not at all Worrying too much about different things: 0 = Not at all Trouble relaxin = Not at all Being so restless that it is hard to sit still: 0 = Not at all Becoming easily annoyed or irritable: 0 = Not at all Feeling afraid as if something awful might happen: 0 = Not at all Total LIS-7 score (0-4 normal; 5-9 mild; 10-14 moderate; 15-21 severe): 0 Source: Developed by Drs. Manjeet Sandra, Juwan Archer and colleagues, with an educational divya from [email or web address]. LIS-7 Assessment Billing LIS-7 Assessment Tool: LIS-7 Assessment 45687 Physical exam (Primary Care) Vital Signs: Last Vital Signs Pulse 64 08/15/25 09:55 Resp 16 08/15/25 09:55 BP 128/90 H 08/15/25 09:55 Pulse Ox 97 08/15/25 09:55 BMI result Body Mass Index 29.0 Tobacco/Smoking Status: Tobacco use Status Tobacco use date assessed 08/15/25 08/15/25 10:00 Patient Tobacco Use Status Never used Tobacco 08/15/25 10:00 e-Cigarette/Vaping Use Never Used 08/15/25 10:00 PHQ-9: PHQ-9 Score PHQ-9: Total score 0 08/15/25 10:00 Depression Screening Interpretation: Negative Thrive Assessment: Date of Thrive Assessment Date Thrive assessed 02/05/25 08/15/25 10:00 Currently or been in a relationship where the following occur: No concerns reported Coding Level of Care Code Est Pt Level 3 (72291) Est Pt Prev Care 40-64y(49482) Diagnoses Physical exam Z00.00 Screening PSA (prostate specific antigen) Z12.5 Allergies T78.40XA SOB (shortness of breath) on exertion R06.02 Additional Codes LIS-7 Assessment Billing - LIS-7 Assessment Tool: LIS-7 Assessment 76398 ([id number]) Assessment & Plan Assessment & Plan (1) Physical exam: Code(s): Z00.00 - Encounter for general adult medical examination without abnormal findings Category: Medical (2) Screening PSA (prostate specific antigen): Code(s): Z12.5 - Encounter for screening for malignant neoplasm of prostate Category: Medical (3) Allergies: Code(s): T78.40XA - Allergy, unspecified, initial encounter Category: Medical (4) SOB (shortness of breath) on exertion: Code(s): R06.02 - Shortness of breath Category: Medical Plan . Orders: Orders Complete Blood Count Auto Diff Today Z00.00 - Encounter for general adult medical examination without abnormal findings Comprehensive [place]. Panel Fast Today Z00.00 - Encounter for general adult medical examination without abnormal findings TSH reflex Free T4 Today Z00.00 - Encounter for general adult medical examination without abnormal findings UA CC w/rflx Micro + Cult Today Z00.00 - Encounter for general adult medical examination without abnormal findings Prostate Specific Antigen Scr Today Z12.5 - Encounter for screening for malignant neoplasm of prostate NM cardiolite stress test Today R06.02 - Shortness of breath CA echo transthoracic complete Today R06.02 - Shortness of breath Lipid Panel Today Z00.00 - Encounter for general adult medical examination without abnormal findings XR chest 2V Today T78.40XA - Allergy, unspecified, initial encounter AMB EKG-In Office Today Z00.00 - Encounter for general adult medical examination without abnormal findings CA stress test Today R06.02 - Shortness of breath
[2025-08-15 10:49] VITALS: BP 124/85
== END 2025-08-15 10:52 | disposition home or self-care (01) ==
LOC: HO.HMCC 09:48
PROVIDERS: PCP Nurse Practitioner Family; Visit Provider Nurse Practitioner Family
DX: Z00.00 Encounter for general adult medical examination without abnormal findings (principal); R06.02 Shortness of breath; T78.40XA Allergy, unspecified, initial encounter; Z12.5 Encounter for screening for malignant neoplasm of prostate

== ENCOUNTER 2025-08-15 09:47 | Outpatient (REF) | payer BC, SELFPAY ==
--- NOTE | ~2025-08-15 | XR_ITS ---
EXAMINATION: XR CHEST CLINICAL INFORMATION: T78.40XA - Allergy, unspecified, initial encounter COMPARISON: Previous chest x-ray most recent October 2022 TECHNIQUE: 2 views of the chest were obtained. FINDINGS: Lungs are clear. No consolidation or pulmonary edema. No pleural effusion or pneumothorax. Cardiac and mediastinal contours are stable. Degenerative changes of the spine. Surgical tack or anchor projects over the right proximal humerus. XR/XR chest 2V IMPRESSION: No evidence for acute disease in the chest. Electronically signed by: Claudia Tejada MD 08/15/2025 11:12 AM [facility]
== END 2025-08-15 09:48 | disposition home or self-care (01) ==
LOC: HO.HMGCX 09:47
PROVIDERS: PCP Nurse Practitioner Family; Visit Provider Nurse Practitioner Family
DX: Z00.00 Encounter for general adult medical examination without abnormal findings (principal); E78.5 Hyperlipidemia, unspecified; K21.9 Gastro-esophageal reflux disease without esophagitis; E06.3 Autoimmune thyroiditis; T78.40XA Allergy, unspecified, initial encounter
CPT/HCPCS: 71046; 96127

== ENCOUNTER → 2025-08-15 10:59 | Outpatient (BNV) | payer BC, SELFPAY | PROVIDERS: PCP Nurse Practitioner Family; Visit Provider Radiology Diagnostic Radiology | DX: T78.40XA Allergy, unspecified, initial encounter (principal) | CPT/HCPCS: 71046 ==

== ENCOUNTER → 2025-09-13 14:50 | Outpatient (BNV) | payer BC, SELFPAY | PROVIDERS: PCP Nurse Practitioner Family; Visit Provider Internal Medicine | DX: I34.0 Nonrheumatic mitral (valve) insufficiency (principal); I77.810 Thoracic aortic ectasia; I42.2 Other hypertrophic cardiomyopathy | CPT/HCPCS: 93306 ==

== ENCOUNTER → 2025-09-13 14:51 | Outpatient (REF) | payer BC, SELFPAY ==
--- NOTE | 2025-09-13 14:50 | CA_ITS ---
Transthoracic Echocardiogram Patient (Last, First, Middle): Robert Gonzalez M Gender: Male Date of : 1970 Age: 54 Procedure Date: 09/13/2025 Procedure Type: Transthoracic Echocardiogram Location: OP Height: 177.8 cm Weight: 91.63 kg BSA: 2.10 m2 Heart Rate: bpm BP: 128 / 90 mmHg Manager Of Internal Audit: TO Referring MD: Jann Gross [facility] Symptoms: R06.02 - Shortness of breath Study Quality: Fair/Contrast ECG Rhythm: Sinus Conclusions: - The left ventricular systolic function is normal. The calculated ejection fraction is 67% by biplane method. - There is mild mitral valve regurgitation. - There is mild dilatation of the ascending aorta measuring 3.80 cm. Findings Procedure Information Contrast agent, definity, is being given per protocol without apparent complications. Left Ventricle Normal left ventricular cavity size. The left ventricular systolic function is normal. The calculated ejection fraction is 67% by biplane method. There is no evidence of regional wall motion abnormalities. Diastolic function is normal for age. There is mild septal asymmetric hypertrophy. Right Ventricle Normal right ventricular cavity size and systolic function. Atria The left atrium is mildly dilated. The right atrium is normal in size. Aortic Valve There is a normal trileaflet aortic valve. There is no aortic valve stenosis. There is no aortic valve regurgitation. Mitral Valve The mitral valve appears normal. There is mild mitral valve regurgitation. There is no mitral valve stenosis. Pulmonic Valve The pulmonic valve is likely normal. Tricuspid Valve Normal tricuspid valve structure. There is trace tricuspid valve regurgitation. There is no evidence of pulmonary hypertension. Great Vessels There is mild dilatation of the ascending aorta measuring 3.80 cm. Venous The inferior vena cava is normal in size and collapses greater than 50% with inspiration. Pericardium/Pleural There is no evidence of pericardial effusion. Prior Study Comparison No prior study available for comparison. Measurements 2D Linear Measurements IVSd: 1.11 0.6-0.9/0.6-1.0 cm LVIDd: 5.09 3.9-5.3/4.2-5.9 cm LVIDd Index: 2.42 2.4-3.2/2.2-3.1 cm/m2 LVIDs: 3.06 2.0-3.6 cm LVPWd: 0.85 0.7-1.1 cm LA Diam: 3.30 2.7-3.8/3.0-4.0 cm LAIDs Index: 1.57 1.5-2.3 cm/m2 LV Mass: 227.12 67-162/88-224 g LV Mass Index: 108.15 43-95/49-115 g/m2 LVOT Diam: 2.20 3.0+(-)1.3 cm 2D Systolic Function EF 4C: 65.40 >55% EF 2C: 67.70 >55% EF BiP: 66.80 >55% Mitral Valve MV Pk E: 0.80 MV PK A: 0.60 MV Decel Time: 214.00 E/A: 1.30 E'Lateral: 9.46 E'Medial: 6.09 E/E' Med: 13.10 E/E' Lat: 8.40 PHT: 63.00 MVA PHT: 3.49 Decel Carson: 3.73 Aortic Valve AoV Pk Claudio: 1.94 AoV Mn Claudio: 1.24 AoV VTI: 0.34 AoV Pk Grad: 15.00 Aov Mn Grad: 7.00 AUDELIA Cont.VTI: 3.49 LVOT LVOT Pk Claudio: 1.74 LVOT Mn Claudio: 1.16 LVOT VTI: 0.31 LVOT Pk Grad: 12.00 LVOT Mn Grad: 6.00 LVOT Diam: 2.20 LVOT Area: 3.80 Diastolic Function MV Pk E: 0.80 MV Pk A: 0.60 E/A: 1.30 E'Medial: 6.09 E/E' Med: 13.10 E' Laterial: 9.46 E/E' Lat: 8.40 Right Ventricle TAPSE (mm): 26.00 TVS' Claudio: 16.90 Tricuspid Valve TR Pk Claudio: 2.59 TR Pk Grad: 27.00 RA Press: 3.00 RVSP: 30.00 Great Vessels Aorta Sinus of Valsalva: 3.85 2.0-3.[address] Ridge: 2.84 1.7-3.4 cm Ao Asc: 3.80 2.1-3.4 cm Updated in Other Vendor System with Status of Final Rodger Mercado MD electronically signed on 09/14/2025 4:42:14 PM with status of Final
--- OUTSIDE RECORDS SUMMARY | 2025-09-13 20:58 | XMS_ITS | Patient Health Record ---
Author Organization [facility] Address [address] [place] [address] Care Team Providers Care Adolescent Medicine Specialist Name Role Phone Jann Lozoya Primary Care Provider Unav Sari Ivory Unavailable [phone] Allergies Allergen (clinical drug ingredient) Drug/Non Drug Allergy documented on EMR Reaction Allergy Type Onset Date Status Shellfish (FN) Shellfish-derived Products Unknown Drug Allergy Active Reason For Referral No Information Medications Medication SIG (Take, Route, Frequency, Duration) Notes Start Date End Date Status Night Splint AFO - L1930 1 wear at rest; Duration: 30 days Active Rosuvastatin Calcium 20 MG 1 tablet Oral ly Once a day Active Esomeprazole Magnesium 40 MG 1 capsule 1/2 to 1 hour before morning meal Orally Once a day Active Lisinopril 20 MG 1 tablet Orally Once a day Active amLODIPine Besylate 2.5 MG 1 tablet Oral ly Once a day Active Immunizations Vaccine Route Administration Date Status Comme nts Influenza Unknown 08/16/2025 Refused Social History Tobacco Use: Social History Observation Description Date Details (start date - stop date) Never Smoker NA - NA Tobacco Control (Standard) Question Answer Notes Tobacco use: Nonsmoker Additional Findings: Tobacco non-user Current no nsmoker AUDIT-C (Standard) Question Answer Notes Did you have a drink containing alcohol in the p ast year? No Points 0 Interpretation Negative Problems Problem Type SNOMED Code ICD Code Onset Dates Problem Status W/U Status Risk Notes Problem Plantar fasciitis of right foot (142387687986501 01) Plantar fasciitis of right foot (M72.2) Active confirmed Problem Interstitial myositis (23788140) Interstitial myositis of right foot (M60.171) Active confirmed Vital Signs Height 5ft 10in in 08/16/2025 Weight 202 lbs 08/16/2025 BMI 28.98 kg/m2 08/16/2025 Encounters Encounter Location Date Provider Diagnosis [facility] [place] [address] [place] [address] 08/16/2025 Sari Serrato Pain in right foot M79.671 ; Plantar fasciitis of right foot M72.2 ; Calcaneal spur, right foot M77.31 ; Interstitial myositis of right foot M60.171 and Bursitis of right foot M77.51 Assessments Encounter Date Diagnosis (ICD Code) Assessment Notes Treatment Notes Treatment Clinical Notes Section Notes 08/16/2025 Pain in right foot (ICD-10 - M79.671) 08/16/2025 Plantar fasciitis of right foot (ICD-10 - M72.2) Patient Educated with: HEEL CORD STRETCHES.pdf (HEEL CORD STRETCHES.pdf) Patient Educated with: RICE THERAPY.pdf (RICE THERAPY.pdf) 08/16/2025 Calcaneal spur, right foot (ICD-10 - M77.31) 08/16/2025 Interstitial myositis of right foot (ICD-10 - M60.171) 08/16/2025 Bursitis of right foot (ICD-10 - M77.51) Plan Of Treatment Pending Test Test Name Order Date X ray : Foot, right 3V 08/16/2025 Next Appt Details Provider Name:Sari Thomas jt, 11/08/2025 10:00:00 AM, [address] [place] [address], [phone], Insurance Providers Payer Name Payer Address Payer Phone Subscriber Number Group Number Insured Name Patient Relationship to Insured Coverage Start Date Coverage End Date [facility] [address] [place] [address] [phone] [id number] Robert Garrison Self - patient is the insured Medical (General) History Medical History History ICD Code High Blood Pressure Reflux ( GERD) Joint implants/screws
== END ==
LOC: HO.CARD 14:51
PROVIDERS: PCP Nurse Practitioner Family; Visit Provider Nurse Practitioner Family
DX: R06.02 Shortness of breath (principal)
CPT/HCPCS: 93306; Q9957

== ENCOUNTER → 2025-09-26 07:52 | Outpatient (REF) | payer BC, SELFPAY ==
--- NOTE | ~2025-09-26 | NM_ITS ---
EXERCISE MYOCARDIAL PERFUSION STUDY INDICATION: Shortness of breath to evaluate for myocardial ischemia TECHNIQUE: The patient was brought in for an exercise perfusion study on 09/26/2025. Patient performed exercise as per Louie protocol and was injected 30 mCi of sestamibi once target heart rate was achieved. Images were obtained using the SPECT gamma camera interlaced with the gating device. Images were obtained in supine position. Resting perfusion study was performed on 09/27/2025. Patient was administered 30 mCi of sestamibi intravenously at rest. Images were then obtained in supine position. Images were processed with the software and compared side to side in short axis, horizontal long axis and vertical long axis views. Images obtained without without CT attenuation. Total DLP 133 mGy-cm. FINDINGS: Raw images were reviewed The stress perfusion study showed nonattenuated images show normal uptake ordered images in all segments of the LV myocardium. Attenuated corrected images show mildly reduced uptake in the apex of the LV myocardium. The gated study shows normal LV systolic function with calculated LVEF of 72%. LV cavity is normal in size. The gated study shows normal systolic wall thickening and contraction of segments. Resting study shows no change in perfusion pattern compared to stress perfusion study. Gating at rest reveals normal systolic wall motion with ejection fraction at 68%. The findings are consistent with normal myocardial perfusion. NM/NM cardiolite stress test IMPRESSION: 1. Myocardial perfusion imaging study shows normal myocardial perfusion. 2. Gated LVEF is 72%. 3. Transient ischemic dilatation not present. EKG revealed negative for ischemia. Electronically signed by: Jason Meehan MD 09/27/2025 04:40 PM [facility]
--- NOTE | 2025-09-26 07:54 | CA_ITS ---
Acquisition Time: 2025-09-26 08:04:12 Total Exercise Time: 00:09:45 Test Indications: SOB, HTN Medications: SEE H&P Protocol: ITZ Max HR: 150 BPM 90% of Pred: 165 BPM Max BP: 164/66 mmHG Max Work Load: 11.3 METS Exercise stress test with exercise 9 mins 45 secs of Itz Protocol, achieving 90% MPHR, with reports of 2/10 left sided chest ache and SOB, without any arrythmias, with normotensive response to exercise. Without any EKG changes meeting criteria for ischemia. In recovery, chest discomfort quickly resolved and breathing improved to baseline. Nuclear images pending. Test reviewed with DR. Austin. Referred By: Jann Gross Electronically Signed By: Joaquin Seth
--- OUTSIDE RECORDS SUMMARY | 2025-09-26 07:55 | XMS_ITS | Patient Health Record ---
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) Active confirmed Vital Signs Height 5ft 10in in 08/16/2025 Weight 202 lbs 08/16/2025 BMI 28.98 kg/m2 08/16/2025 Encounters Encounter Location Date Provider Diagnosis [facility] [place] [address] [place] [address] 08/16/2025 Sari Serrato Pain in right foot [...] Provider Name:Sari Thomas jt, 11/08/2025 10:00:00 AM, [address] [place] [address], [phone], Insurance Providers Payer Name Payer Address Payer Phone Subscriber Number Group Number Insured Name Patient Relationship to Insured Coverage Start Date Coverage End Date [facility] [address] [place] [address] [id number] Robert Garrison Self - patient is the insured Medical (General) History Medical History History ICD Code High Blood Pressure Reflux ( GERD) Joint implants/screws
== END ==
LOC: HO.CARD 07:52
PROVIDERS: PCP Nurse Practitioner Family; Visit Provider Nurse Practitioner Family
DX: R06.02 Shortness of breath (principal); I10 Essential (primary) hypertension
CPT/HCPCS: 78452; 93017; A9500

== ENCOUNTER → 2025-09-26 07:54 | Outpatient (BNV) | payer BC, SELFPAY | PROVIDERS: PCP Nurse Practitioner Family | DX: R07.89 Other chest pain (principal); R06.02 Shortness of breath | CPT/HCPCS: 78452; 93016; 93018 ==